=== PATIENT | female | born 1980 | race African-American/Black ===

== ENCOUNTER 2020-05-01 09:42 | Inpatient (IN) | payer SELFPAY ==
[2020-05-01] VITALS (29 sets, daily range): BP systolic 119–203; BP diastolic 63–108
[~2020-05-01] VITALS: Ht 157.5 cm; Wt 80.3 kg
[2020-05-01] MEDS ORDERED: MORPHINE SULFATE INJ 4 MG/ML INJ 1ML IV ONE (09:45)
[2020-05-01] MEDS ORDERED: ASPIRIN 81 MG CHEW TAB PO ONE ×2 (09:45→10:15)
[2020-05-01] MEDS ORDERED: ONDANSETRON HCL INJ 2MG/ML 2ML 2 MG/ML VIAL IV ONE (09:45)
[2020-05-01] MEDS ORDERED: HYDRALAZINE HCL 20 MG/ML VIAL IV ONE (09:45)
--- NOTE | 2020-05-01 09:48 | Emergency Department Note ---
History of Present Illnes History of Present Illness History of Present Illness This is a 39 year old female presents to the ED for dyspnea and CP that started this AM. Patient self-administered nitro with relief from pain . Historian: Patient Arrival Mode: Car Onset (how long ago): hour(s) Location: substernal Radiation: Reports non-radiation Severity: moderate Onset quality: sudden Duration (how long): hour(s) Timing of current episode: constant Progression: worsening Chronicity: new Context: Denies recent illness, Denies recent surgery, Denies recent immobilization, Denies recent travel, Denies trauma/injury, Denies new medications, Denies hx of DVT/PE, Denies non-compliance w/ medications, Denies other Exacerbating factors: other (nitro) Associated symptoms: Reports chest pain, Reports shortness of breath Past Medical/Family History Physician Review I have reviewed the patient's past medical and family history. Any updates have been documented here. Past Medical History Recent Fever: No Clinical Suspicion of Infectio: No New/Unexplained Change in Ment: No Past Medical History: CHF Past Surgical History: None Social History Smoking Cessation: Never Smoker Alcohol Use: None Any Illegal Drug Use: No Review of Systems Review of Systems Constitutional: Reports no symptoms EENTM: Reports no symptoms Cardiovascular: Reports chest pain Respiratory: Reports dyspnea Gastrointestinal: Reports no symptoms Genitourinary: Reports no symptoms Musculoskeletal: Reports no symptoms Integumentary: Reports no symptoms Neurological: Reports no symptoms Psychological: Reports no symptoms Endocrine: Reports no symptoms Hematological/Lymphatic: Reports no symptoms Physical Exam Related Data Allergies: Coded Allergies: No Known Allergies (Unverified , 05/01/20) Vital signs reviewed: Yes Physical Exam CONSTITUTIONAL Constitutional: Present well-developed, Present well-nourished HENT HENT: Present normocephalic, Present atraumatic, Present oropharynx clear/moist, Present nose normal HENT L/R: Present left ext ear normal, Present right ext ear normal EYES Eyes: Reports PERRL, Reports conjunctivae normal NECK Neck: Present ROM normal PULMONARY Pulmonary: Present effort normal, Present breath sounds normal CARDIOVASCULAR Cardiovascular: Present regular rhythm, Present irregular rhythm, Present heart sounds normal, Present capillary refill normal, Present normal rate GASTROINTESTINAL Abdominal: Present soft, Present nontender, Present bowel sounds normal GENITOURINARY Genitourinary: Present exam deferred SKIN Skin: Present warm, Present dry MUSCULOSKELETAL Musculoskeletal: Present ROM normal NEUROLOGICAL Neurological: Present alert, Present oriented x 3, Present no gross motor or sensory deficits PSYCHOLOGICAL Psychological: Present mood/affect normal, Present judgement normal Results Laboratory Lab results reviewed: Yes Laboratory comments Laboratory Tests Test 05/01/20 10:08 White Blood Count 5.66 x10e3/uL (4.8-10.8) Red Blood Count 3.82 x10e6/uL (3.6-5.1) Hemoglobin 8.9 g/dL (12.0-16.0) Hematocrit 29.0 % (34.2-44.1) Mean Corpuscular Volume 75.9 fL (81-99) Mean Corpuscular Hemoglobin 23.3 pg (28-32) Mean Corpuscular Hemoglobin Concent 30.7 g/dL (31-35) Red Cell Distribution Width 19.6 % (11.7-14.4) Platelet Count 404 x10e3/uL (140-360) Neutrophils (%) (Auto) 57.9 % (38.7-80.0) Lymphocytes (%) (Auto) 31.8 % (18.0-39.1) Monocytes (%) (Auto) 6.5 % (4.4-11.3) Eosinophils (%) (Auto) 2.7 % (0.0-6.0) Basophils (%) (Auto) 0.9 % (0.0-1.0) Neutrophils # (Auto) 3.3 (2.1-6.9) Lymphocytes # (Auto) 1.8 (1.0-3.2) Monocytes # (Auto) 0.4 (0.2-0.8) Eosinophils # (Auto) 0.2 (0.0-0.4) Basophils # (Auto) 0.1 (0.0-0.1) Absolute Immature Granulocyte (auto 0.01 x10e3/uL (0-0.1) D-Dimer Quantitative (PE/DVT) 0.88 ug/mLFEU (0.00-0.45) Sodium Level 140 mmol/L (136-145) Potassium Level 3.2 mmol/L (3.5-5.1) Chloride Level 106 mmol/L (98-107) Carbon Dioxide Level 23 mmol/L (22-29) Anion Gap 14.2 mmol/L (8-16) Blood Urea Nitrogen 42 mg/dL (7-26) Creatinine 2.83 mg/dL (0.57-1.11) Estimat Glomerular Filtration Rate 18 ML/MIN (60-) BUN/Creatinine Ratio 15 (6-25) Glucose Level 122 mg/dL (74-118) Calcium Level 8.1 mg/dL (8.4-10.2) Total Bilirubin 0.2 mg/dL (0.2-1.2) Aspartate Amino Transf (AST/SGOT) 14 IU/L (5-34) Alanine Aminotransferase (ALT/SGPT) 15 IU/L (0-55) Alkaline Phosphatase 54 IU/L (40-150) Creatine Kinase 1023 IU/L (29-168) Creatine Kinase MB 4.50 ng/mL (0-5.0) Troponin I 0.010 ng/mL (0-0.300) B-Type Natriuretic Peptide 916.1 pg/mL (0-100) Total Protein 6.7 g/dL (6.5-8.1) Albumin 2.6 g/dL (3.5-5.0) Globulin 4.1 g/dL (2.3-3.5) Albumin/Globulin Ratio 0.6 (0.8-2.0) Imaging Imaging results reviewed: Yes Impressions CXR : interpreted without the benfits of radiology, Cardiomegaly without cephalization of concerning findings for Pulmonary edema Procedures 12 Lead ECG Interpretation ECG Interpretation : ECG: ECG 1 Inspector Elevators: Interpreted by ED physician Date: May 01, 2020 Time: 10:09 Prior ECG tracings: reviewed Rhythm: atrial fibrillation Ectopy: PVC's Rate: normal BPM: 89 QRS axis: normal ST segments normal: Yes T waves normal: Yes Clinical Impression: abnormal ECG Critical Care Time Total Critical Care Time (min): 31 Critcal care necessary due to: cardiac failure Critcal care time spent by me: develop tx plan w patient/surrogate, evaluation patient response to tx, examination of patient, obtaining hx from patient/surrogate, order/perform tx or interventions, order/review laboratory studies, order/review radiographic studies, pulse oximetry, re-evaluation of patient condition Assessment & Plan Medical Decision Making MDM Diff Dx : CHF, ACS, PNA, COVID-19 URI Assessment & Plan Final Impression: (1) Hypertensive CHF (2) Hypokalemia (3) Renal insufficiency (4) Hypertensive emergency Depart Disposition: ADMITTED ARASH PIERRE May 01, 2020 09:47
[2020-05-01] MEDS ORDERED: NITROGLYCERIN/D5W 200 MCG/ML 250 ML IV PRN (10:15)
[2020-05-01] MEDS ORDERED: MORPHINE SULFATE 2 MG/ML SYR 1ML IV PRN (10:15)
[2020-05-01] MEDS ORDERED: SODIUM CHLORIDE FLUSH 10 ML SYR INJ PRN (10:15)
[2020-05-01] MEDS ORDERED: ONDANSETRON HCL INJ 2MG/ML 2ML 2 MG/ML VIAL IV PRN ×2 (10:15→15:30)
[2020-05-01 10:17] LABS: BASOPHILS # (AUTO) 0.1 (0.0-0.1); BASOPHILS % 0.9 % (0.0-1.0); EOSINOPHILS # (AUTO) 0.2 (0.0-0.4); EOSINOPHILS % 2.7 % (0.0-6.0); HEMOGLOBIN 8.9 g/dL (12.0-16.0); LYMPHOCYTES # (AUTO) 1.8 (1.0-3.2); LYMPHOCYTES % 31.8 % (18.0-39.1); MEAN CORPUSCULAR HEMOGLOBIN 23.3 pg (28-32); MEAN CORPUSCULAR HGB CONC 30.7 g/dL (31-35); MEAN CORPUSCULAR VOLUME 75.9 fL (81-99); MONOCYTES # (AUTO) 0.4 (0.2-0.8); MONOCYTES % 6.5 % (4.4-11.3); NEUTROPHILS # (AUTO) 3.3 (2.1-6.9); NEUTROPHILS % 57.9 % (38.7-80.0); PLATELET COUNT 404 x10e3/uL (140-360); RED BLOOD COUNT 3.82 x10e6/uL (3.6-5.1); RED CELL DISTRIBUTION WIDTH 19.6 % (11.7-14.4)
[2020-05-01] MEDS ORDERED: MORPHINE SULFATE INJ 4 MG/ML INJ 1ML IV PRN (10:30)
[2020-05-01 10:38] LABS: ALBUMIN 2.6 g/dL (3.5-5.0); ALBUMIN/GLOBULIN RATIO 0.6 (0.8-2.0); ANION GAP 14.2 mmol/L (8-16); CALCIUM 8.1 mg/dL (8.4-10.2); CREATININE, SERUM 2.83 mg/dL (0.57-1.11); POTASSIUM 3.2 mmol/L (3.5-5.1)
[2020-05-01 10:46] LABS: CREATINE KINASE MB 4.5 ng/mL (0-5.0)
--- OUTSIDE RECORDS SUMMARY | 2020-05-01 11:14 | XMS REPORT | Clinical Summary ---
Author Author [facility] Organization [facility] Address Unknown Phone Unavailable Care Team Providers Care Atomizer Assembler Name Role Phone Cuco Barahona MD PCP Allergies No Known Allergies Medications End Date Status Medication Sig Dispensed Refills Start Date Active EPINEPHrine (EPIPEN) 0.3 Inject 0.3 mL 2 Syringe 1 mg/0.3 mL intramuscular 6 injectionIndications: ly as needed Environmental allergies for Anaphylaxis. Active blood glucose test Check blood 50 Each 3 01/06/2 01 stripsIndications: glucose 2 7 Uncontrolled type 2 times weekly diabetes mellitus without complication, without long-term current use of insulin Active lancets 28 Check blood 100 Each 1 gaugeIndications: glucose 2 7 Uncontrolled type 2 times weekly. diabetes mellitus without complication, without long-term current use of insulin Active pen needle, diabetic 31 Inject under 300 Each 2 0 gauge x 3/16" the skin 4 8 needlesIndications: times daily. Inadequately controlled diabetes mellitus Active triamcinolone (KENALOG) Apply to 80 g 0 0.1 % affected area 9 ointmentIndications: 2 times Pruritic dermatitis daily. Active polyethylene glycol Mix 17 grams 527 g 1 08/05 (GLYCOLAX) 17 gram/dose into 4 to 8 0 oral powderIndications: ounces of Iron deficiency anemia water, juice, due to chronic blood loss soda, tea or coffee and drink as directed, one time a day. Active atorvastatin (LIPITOR) 80 Take 1 tablet 30 tablet 2 mg tabletIndications: by mouth at 0 Essential hypertension bedtime nightly. Active NIFEdipine (PROCARDIA XL) Take 1 tablet 30 tablet 2 90 mg extended release by mouth 0 tabletIndications: daily. Essential hypertension Active aspirin (ASPIRIN) 81 mg Chew and 30 tablet 2 chewable swallow 1 0 tabletIndications: tablet by Essential hypertension mouth daily. Active isosorbide mononitrate Take 1 tablet 30 tablet 2 1 (IMDUR) 30 mg extended by mouth 0 release every tabletIndications: morning. Essential hypertension Active nitroGLYCERIN (NITROSTAT) Dissolve 1 100 tablet 1 0.4 mg sublingual tablet under 0 tabletIndications: Chest the tongue pain in adult every 5 minutes as needed, up to 3 times. If chest pain persists, call 911. Active NIFEdipine (PROCARDIA XL) Take 1 tablet 90 tablet 1 90 mg extended release by mouth 0 tabletIndications: daily. Essential hypertension Active isosorbide mononitrate Take 1 tablet 90 tablet 1 1 (IMDUR) 30 mg extended by mouth 0 release daily. tabletIndications: Essential hypertension Active atorvastatin (LIPITOR) 80 Take 1 tablet 90 tablet 1 mg tabletIndications: by mouth at 0 Essential hypertension bedtime nightly. Active glimepiride (AMARYL) 4 mg Take 1 tablet 90 tablet 1 tabletIndications: by mouth 0 Controlled type 2 daily (with diabetes mellitus with breakfast). stage 4 chronic kidney disease, without long-term current use of insulin Active furosemide (LASIX) 40 mg Take 2 360 tablet 1 1 tabletIndications: tablets by 0 Essential hypertension mouth 2 times daily. Active linaGLIPtin (TRADJENTA) 5 Take 1 tablet 90 tablet 1 mg tabletIndications: by mouth 0 Controlled type 2 daily. diabetes mellitus with stage 4 chronic kidney disease, without long-term current use of insulin Active metoprolol succinate Take 1 tablet 90 tablet 2 (TOPROL XL) 100 mg by mouth 0 extended release every 12 tabletIndications: hours. Essential hypertension, Paroxysmal A-fib Active lancets 28 Use 2 times 200 Each 3 gaugeIndications: daily 0 Controlled type 2 diabetes mellitus with stage 4 chronic kidney disease, without long-term current use of insulin Active blood glucose test Use 2 times 200 Each 6 02 stripsIndications: daily. 0 Controlled type 2 diabetes mellitus with stage 4 chronic kidney disease, without long-term current use of insulin Active blood glucose Use as 1 Kit 0 meterIndications: directed.. 0 Controlled type 2 diabetes mellitus with stage 4 chronic kidney disease, without long-term current use of insulin Active Miscellaneous Medical Blood 1 Each 0 02/28 Supply MiscIndications: pressure 0 Essential hypertension, monitor to Congestive heart failure, check BP. unspecified HF chronicity, unspecified heart failure type Active Miscellaneous Medical Scale to 1 Each 0 02/28 Supply MiscIndications: check weight. 0 Essential hypertension, Congestive heart failure, unspecified HF chronicity, unspecified heart failure type 03/26/2020 Discontinued (Reorder) blood glucose Use as 1 Kit 0 meterIndications: directed.. 9 Uncontrolled type 2 diabetes mellitus without complication, without long-term current use of insulin 03/26/2020 Discontinued (Other) PARoxetine (PAXIL) 20 mg Take 1 tablet 30 tablet 3 tabletIndications: by mouth 9 Anxiety every morning. 05/21/2019 Discontinued (Duplicate Orde r) valsartan (DIOVAN) 80 mg Take 1 tablet 60 tablet 0 tabletIndications: by mouth 2 9 Essential hypertension, times daily Microalbuminuria for 30 days. 03/26/2020 Discontinued (Reorder) lancets 28 Use 2 times 200 Each 3 gaugeIndications: daily 9 Inadequately controlled diabetes mellitus 03/26/2020 Discontinued (Reorder) blood glucose test Use 2 times 200 Each 6 01 stripsIndications: daily. 9 Inadequately controlled diabetes mellitus 08/06/2019 Discontinued (Other) hydrOXYzine (ATARAX) 10 Take 1 tablet 30 tablet 0 mg tabletIndications: by mouth 9 Pruritic dermatitis every 6 hours as needed for Itching May cause DROWSINESS. 05/02/2019 Discontinued (Dose adjustmen t) furosemide (LASIX) 20 mg Take 1 tablet 60 tablet 2 tabletIndications: by mouth 2 9 Essential hypertension times daily. 05/21/2019 Discontinued (Reorder) valsartan (DIOVAN) 80 mg Take 1 tablet 90 tablet 1 tabletIndications: by mouth 2 9 Essential hypertension times daily for 180 days. 08/06/2019 Discontinued (Reorder) metFORMIN (GLUCOPHAGE) Take 1 tablet 180 tablet 1 1 1,000 mg by mouth 2 9 tabletIndications: times daily Inadequately controlled (with meals). diabetes mellitus 08/06/2019 Discontinued (Reorder) linaGLIPtin (TRADJENTA) 5 Take 1 tablet 90 tablet 1 mg tabletIndications: by mouth 9 Inadequately controlled daily. diabetes mellitus 07/01/2019 Discontinued (Reorder) spironolactone Take 1 tablet 30 tablet 1 (ALDACTONE) 25 mg by mouth 9 tabletIndications: daily. Essential hypertension 05/02/2019 Discontinued (Reorder) hydrALAZINE (APRESOLINE) Take 1 tablet 270 tablet 1 25 mg tabletIndications: by mouth 3 9 Essential hypertension times daily. 03/26/2020 Discontinued (Duplicate Orde r) polyethylene glycol Mix 17 grams 527 g 0 04/25 (GLYCOLAX) 17 gram/dose into 4 to 8 9 oral powderIndications: ounces of Constipation, unspecified water, juice, constipation type soda, tea or coffee and drink as directed, one time a day. 05/29/2019 Discontinued dexlansoprazole Take 1 30 capsule 0 (DEXILANT) 60 mg delayed capsule by 9 release mouth daily. capsuleIndications: Abdominal discomfort 05/21/2019 Discontinued (Dose adjustmen t) glimepiride (AMARYL) 2 mg Take 1 tablet 90 tablet 1 tabletIndications: by mouth 9 Inadequately controlled every morning diabetes mellitus (before breakfast). 08/06/2019 Discontinued (Reorder) atorvastatin (LIPITOR) 40 Take 1 tablet 90 tablet 1 mg tabletIndications: by mouth at 9 Inadequately controlled bedtime diabetes mellitus nightly. 08/06/2019 Discontinued (Reorder) furosemide (LASIX) 40 mg Take 2 360 tablet 1 1 tabletIndications: tablets by 9 Essential hypertension mouth 2 times daily. 08/06/2019 Discontinued (Reorder) hydrALAZINE (APRESOLINE) Take 1 tablet 270 tablet 1 25 mg tabletIndications: by mouth 3 9 Essential hypertension times daily. 05/02/2019 Discontinued (Reorder) NIFEdipine (NIFEDIPINE Take 1 tablet 90 tablet 1 1 ER) 60 mg 24 hr extended by mouth 9 release daily. tabletIndications: Essential hypertension 05/29/2019 Discontinued NIFEdipine (NIFEDIPINE Take 1 tablet 90 tablet 1 1 ER) 60 mg 24 hr extended by mouth 9 release daily. tabletIndications: Essential hypertension 05/29/2019 Discontinued valsartan (DIOVAN) 80 mg Take 1 tablet 180 tablet 1 tabletIndications: by mouth 2 9 Essential hypertension times daily for 180 days. 08/06/2019 Discontinued (Reorder) glimepiride (AMARYL) 4 mg Take 1 tablet 90 tablet 1 tabletIndications: by mouth 9 Inadequately controlled daily (with diabetes mellitus breakfast). 08/06/2019 Discontinued (Reorder) NIFEdipine (NIFEDIPINE Take 1 tablet 90 tablet 1 0 ER) 60 mg 24 hr extended by mouth 0 release daily. tabletIndications: Essential hypertension 07/01/2019 Discontinued (Reorder) dexlansoprazole Take 1 30 capsule 0 (DEXILANT) 60 mg delayed capsule by 0 release mouth daily. capsuleIndications: Abdominal discomfort 08/06/2019 Discontinued (Reorder) valsartan (DIOVAN) 80 mg Take 1 tablet 180 tablet 1 tabletIndications: by mouth 2 0 Essential hypertension times daily 08/06/2019 Discontinued (Reorder) dexlansoprazole Take 1 30 capsule 0 (DEXILANT) 60 mg delayed capsule by 0 release mouth daily. capsuleIndications: Abdominal discomfort 08/06/2019 Discontinued (Dose adjustmen t) spironolactone Take 1 tablet 30 tablet 1 (ALDACTONE) 25 mg by mouth 0 tabletIndications: daily. Essential hypertension 08/06/2019 Discontinued (Reorder) spironolactone Take 1 tablet 180 tablet 1 (ALDACTONE) 50 mg by mouth 2 0 tabletIndications: times daily. Essential hypertension 08/06/2019 Discontinued (Reorder) furosemide (LASIX) 40 mg Take 2 360 tablet 1 0 tabletIndications: tablets by 0 Essential hypertension mouth 2 times daily. 08/06/2019 Discontinued (Reorder) hydrALAZINE (APRESOLINE) Take 1 tablet 270 tablet 1 25 mg tabletIndications: by mouth 3 0 Essential hypertension times daily. 08/06/2019 Discontinued (Dose adjustmen t) valsartan (DIOVAN) 80 mg Take 1 tablet 180 tablet 1 tabletIndications: by mouth 2 0 Essential hypertension times daily 08/06/2019 Discontinued (Reorder) NIFEdipine (NIFEDIPINE Take 1 tablet 90 tablet 1 0 ER) 60 mg 24 hr extended by mouth 0 release daily. tabletIndications: Essential hypertension 08/06/2019 Discontinued (Reorder) metFORMIN (GLUCOPHAGE) Take 1 tablet 180 tablet 1 0 1,000 mg by mouth 2 0 tabletIndications: times daily Inadequately controlled (with meals). diabetes mellitus 08/06/2019 Discontinued (Reorder) Valsartan 160 mg Take 1 tablet 90 tablet 1 02 tabletIndications: by mouth 0 Essential hypertension daily. 08/06/2019 Discontinued (Reorder) polyethylene glycol Mix 17 grams 527 g 1 08/05 (GLYCOLAX) 17 gram/dose into 4 to 8 0 oral powderIndications: ounces of Iron deficiency anemia water, juice, due to chronic blood loss soda, tea or coffee and drink as directed, one time a day. 08/06/2019 Discontinued (Reorder) spironolactone Take 1 tablet 180 tablet 1 (ALDACTONE) 50 mg by mouth 2 0 tabletIndications: times daily. Essential hypertension 08/06/2019 Discontinued (Reorder) Valsartan 160 mg Take 1 tablet 90 tablet 1 02 tabletIndications: by mouth 0 Essential hypertension daily. 03/26/2020 Discontinued (Dose adjustmen t) NIFEdipine (NIFEDIPINE Take 1 tablet 90 tablet 1 0 ER) 60 mg 24 hr extended by mouth 0 release daily. tabletIndications: Essential hypertension 03/26/2020 Discontinued (Other) metFORMIN (GLUCOPHAGE) Take 1 tablet 180 tablet 1 0 1,000 mg by mouth 2 0 tabletIndications: times daily Inadequately controlled (with meals). diabetes mellitus 03/26/2020 Discontinued (Alternate ther apy) spironolactone Take 1 tablet 180 tablet 1 (ALDACTONE) 50 mg by mouth 2 0 tabletIndications: times daily. Essential hypertension 03/26/2020 Discontinued (Alternate ther apy) Valsartan 160 mg Take 1 tablet 90 tablet 1 02 tabletIndications: by mouth 0 Essential hypertension daily. 03/04/2020 Discontinued (Reorder) hydrALAZINE (APRESOLINE) Take 1 tablet 270 tablet 1 25 mg tabletIndications: by mouth 3 0 Essential hypertension times daily. 03/26/2020 Discontinued (Reorder) furosemide (LASIX) 40 mg Take 2 360 tablet 1 0 tabletIndications: tablets by 0 Essential hypertension mouth 2 times daily. 11/21/2019 Discontinued dexlansoprazole Take 1 60 capsule 0 (DEXILANT) 60 mg delayed capsule by 0 release capsule mouth daily. 03/26/2020 Discontinued (Reorder) glimepiride (AMARYL) 4 mg Take 1 tablet 90 tablet 1 tabletIndications: by mouth 0 Inadequately controlled daily (with diabetes mellitus breakfast). 03/26/2020 Discontinued (Dose adjustmen t) atorvastatin (LIPITOR) 40 Take 1 tablet 90 tablet 1 mg tabletIndications: by mouth at 0 Inadequately controlled bedtime diabetes mellitus nightly. 03/04/2020 Discontinued (Reorder) linaGLIPtin (TRADJENTA) 5 Take 1 tablet 90 tablet 1 mg tabletIndications: by mouth 0 Inadequately controlled daily. diabetes mellitus 10/26/2019 Discontinued (Therapy comple alecia) fluconazole (DIFLUCAN) Take 1 tablet 3 tablet 0 0 150 mg tabletIndications: by mouth 0 Vaginal discharge weekly. 11/05/2019 hydrOXYzine (ATARAX) 25 Take 1 tablet 30 tablet 1 mg tabletIndications: by mouth 3 0 Itching times daily as needed for up to 10 days for Itching. 03/04/2020 Discontinued (Reorder) dexlansoprazole Take 1 60 capsule 0 (DEXILANT) 60 mg delayed capsule by 0 release mouth daily. capsuleIndications: Medication refill 03/26/2020 Discontinued (Reorder) linaGLIPtin (TRADJENTA) 5 Take 1 tablet 90 tablet 1 mg tabletIndications: by mouth 0 Inadequately controlled daily. diabetes mellitus 03/26/2020 Discontinued (Therapy comple alecia) dexlansoprazole Take 1 60 capsule 0 (DEXILANT) 60 mg delayed capsule by 0 release mouth daily. capsuleIndications: Medication refill 03/26/2020 Discontinued (Therapy comple alecia) hydrALAZINE (APRESOLINE) Take 1 tablet 270 tablet 1 25 mg tabletIndications: by mouth 3 0 Essential hypertension times daily. 03/19/2020 Discontinued (Duplicate Orde r) omeprazole (PRILOSEC) 20 Take 2 30 capsule 2 1 mg delayed release capsules by 0 capsuleIndications: Other mouth every chest pain morning (before breakfast). 03/22/2020 polyethylene glycol 3350 Mix 17 grams 14 Each 0 (GLYCOLAX) 17 gram oral into 4 to 8 0 powder packetIndications: ounces of Fibroids water, juice, soda, tea or coffee and drink as directed. 03/26/2020 Discontinued (Reorder) metoprolol succinate Take 1 tablet 30 tablet 2 (TOPROL XL) 100 mg by mouth 0 extended release every 12 tabletIndications: hours. Paroxysmal atrial fibrillation, Essential hypertension 03/21/2020 tropicamide (MYDRIACYL) Instill 1 15 mL 0 0.5 % ophthalmic Drop in each 0 solutionIndications: eye once as Preventative health care needed for up to 1 dose (for poor retina scan image). Status Hospital, Clinic, or Ordered Dose Route Frequency Start End Date Other Facility Date Administered Medication Ended cloNIDine HCl (CATAPRES) 0.1 mg OR ONCE 05/02/20 tablet 0.1 mgIndications: 19 9 Essential hypertension Active Problems Problem Noted Date Congestive heart failure 03/21/2020 CKD (chronic kidney disease) stage 4, GFR 15-29 ml/mi n 03/21/2020 Acute exacerbation of CHF (congestive heart failure) 03/17/2020 Acute on chronic diastolic heart failure 03/14/2020 Proteinuria 08/06/2019 Premenopausal menorrhagia 08/06/2019 Cyclic perimenstrual edema 05/21/2019 Abnormal urine- protein /RBCs -needs urine culture 1 07/02/2018 Uncontrolled hypertension-per renal doppler -no renal art stenosis ; 04/27/2019 aldosterone /renin/ urine metanephrine neg ; tte- diastolic dysfunction ;proteinuria + urine electrophoresis pe nding Renal calculus 04/27/2019 Premenstrual symptom- edema , depresssed mood 2018 Headache 02/03/2017 Nonintractable headache 02/03/2017 Chest pain 02/02/2017 Medication refill-genital herpes - 3 times last yr 0 01/04/2017 Anemia, unspecified 03/18/2016 Influenza vaccination declined 03/18/2016 Non compliance with medical treatment- I have 3 kids 6th grade ; working , 03/01/2016 school ; single parent Microalbuminuria 09/26/2015 Stress- working 5 days a wk ; school 4 days a wk; sin gle mother - 3 kids-11 09/10/2015 yrs ( twins and one son) ; moth er helps Genital herpes simplex- 7 times 2014 ; to start suppr esive therapy 08/07/2015 Leg pain 03/15/2015 Myopia with astigmatism 10/18/2014 Irregular periods/menstrual cycles 10/24/2013 Fibroids 10/24/2013 PCOS (polycystic ovarian syndrome) 01/26/2012 Tinea pedis 08/02/2009 Callus 08/02/2009 Diabetes mellitus type 2, uncontrolled 06/19/2009 HTN (hypertension) 03/11/2007 Resolved Problems Problem Noted Date Resolved Date Bloating symptom 08/06/2019 03/26/2020 Encounters Care Team Description Date Type Specialty Cuco Barahona MD Rahman, Huma, MD Chest pain, unspecified type (Primary Dx ); Uncontrolled hypertension; CKD (chronic kidney disease) stage 4, GFR 15-29 ml/min; Psychosocial distress 05/01/2020 Office Visit Family Practice Cuco Barahona MD Anemia, unspecified type; Menorrhagia with regular cycle; Uterine leiomyoma, unspecified location 04/28/2020 Lab Appointment Lab Cuco Barahona MD Controlled type 2 diabetes mellitus with stage 4 chronic kidney disease, without long-term current use of insulin (Primary Dx); CKD (chronic kidney disease) stage 4, GFR 15-29 ml/min; Essential hypertension; Congestive heart failure, unspecified HF chronicity, unspecified heart failure type; Need for influenza vaccination; Paroxysmal A-fib; Anemia, unspecified type; Menorrhagia with regular cycle; Uterine leiomyoma, unspecified location 03/26/2020 Office Visit Family Practice Cuco Barahona MD Congestive heart failure, unspecified HF chronicity, unspecified heart failure type (Primary Dx); CKD (chronic kidney disease) stage 4, GFR 15-29 ml/min; Preventative health care 03/21/2020 Telephonic Family Practice Encounter Yessica Fuentes 03/21/2020 Clinical Case Social Work Mgt 03/18/2020 Intake Cuco Barahona MD NO SHOW ENCOUNTER (Primary Dx) 03/17/2020 Telemedicine Family Practice Nithin Rangel MD Sharma, Kunal M, MD Miller, Sara K, MD Baker, James R, MD Sanchez, Ashley N, ResidentMD Essential hypertension (Primary Dx); Chest pain, unspecified type; Pre-syncope; Paroxysmal atrial fibrillation; New onset of congestive heart failure; Anemia, unspecified type; Chest pain in adult; Other chest pain; Fibroids 03/14/2020 Hospital - Encounter 03/19/2020 03/14/2020 Intake Emergency Medicine Erin Han RN 03/14/2020 Nurse Triage Cuco Barahona MD Medications 03/04/2020 Refill [facility] Xiao Blanchard MD Essential hypertension; Uncontrolled type 2 diabetes mellitus with hypoglycemia without coma; Microalbuminuria; Microcytic anemia 11/26/2019 Hospital Lab Encounter Cuco Barahona MD Medications 11/21/2019 Refill Family Practice Valerie Iglesias PA Itching (Primary Dx) 10/26/2019 Office Visit [facility] Cuco Barahona MD Inadequately controlled diabetes mellitu s (Primary Dx); Essential hypertension; Proteinuria, unspecified type; CKD (chronic kidney disease) stage 3, GFR 30-59 ml/min; Dietary counseling for Above / Below Normal BMI; Exercise counseling for Above Normal BMI Only!; Vaginal discharge; Premenopausal menorrhagia; Iron deficiency anemia due to chronic blood loss; Bloating symptom 08/06/2019 Office Visit Family Cuco Rodriguez MD Medications 08/06/2019 Refill Family Practice Cuco Barahona MD Medications 07/01/2019 Refill Family Practice Cuco Barahona MD Medications 05/29/2019 Refill Family Practice Cuco Barahona MD Inadequately controlled diabetes mellitu s (Primary Dx); Essential hypertension; Proteinuria, unspecified type; Cyclic perimenstrual edema; Anemia, unspecified type; Elevated platelet count; Urinary frequency 05/21/2019 Office Visit Family Practice Cuco Barahona MD Essential hypertension (Primary Dx); Chest pain, unspecified type 05/02/2019 Office Visit Family Practice Cuco Barahona MD Martinez, Marvin, LVN Chest pain, unspecified type (Primary Dx ); Essential hypertension 05/02/2019 Nurse Only Cuco Barahona MD Essential hypertension; Renal insufficiency; Hematuria, unspecified type; Abnormal urine 05/02/2019 Lab Appointment Lab after 05/01/2019 Immunizations Name Administration Dates Next Due Influenza Vaccine 03/18/2016, 05/22/2014 (Def erred: Patient Refused) Influenza, Injectable, 04/25/2019 (Deferred: Patie nt Refused), 04/17/2019 Quadrivalent (Deferred: Patient Refused) Influenza, 03/26/2020 (Deferred: Patie nt Refused) Vaccine<FLUCELVAX>(Multi- Dose) PNEUMOCOCCAL 23-VALPS 07/01/2016 (Deferred: Patie nt Refused) VACCINE 25 MCG/0.5 ML INJECTION PPD 06/21/2007 Pneumococcal 13-valent 10/03/2015 (Deferred: Patie nt Refused) conj 0.5 mL injection Tdap (Tetanus Toxoid, 04/17/2019 (Deferred: Patie nt Refused) Reduced Diphtheria Toxoid And Acellular Pertussis, Absorbed) Tdap Tetanus, diphtheria, 04/17/2019 (Deferred: Jayde ent already had this acellular pertussis immunization) Vaccine Family History Medical History Relation Name Comments Hypertension Brother Cancer Maternal ? throat CA Grandfather Diabetes Mother Hypertension Mother Relation Name Status Comments Brother Alive Maternal Grandfather Mother Alive Mother Alive Social History Date Tobacco Use Types Packs/Day Years Used Never Smoker Smokeless Tobacco: Never Used Tobacco Cessation: Counseling Given: No Comments: Non tobacco user Drinks/Week oz/Week Comments Alcohol Use No Food Insecurity Answer Date Recorded Within the past 12 months, you worried that your Sometimes true 08/06/2019 food would run out before you got money to buy more. Within the past 12 months, the food you bought Sometimes t rue 08/06/2019 just didn't last and you didn't have mo polina to get more. Sex Assigned at Date Recorded Not on file Industry Job Start Date Occupation Not on file Not on file Not on file Travel End Travel History Travel Start No recent travel history available. Date Recorded COVID-19 Exposure Response 05/01/2020 7:31 AM INSTRUCTIONAL ASSISTANT In the last month, have you been in contact with No / Unsure someone who was confirmed or suspected to have Coronavirus / COVID-19? Last Filed Vital Signs Reading Time Taken Comments Vital Sign 148/97 05/01/2020 8:49 AM INSTRUCTIONAL ASSISTANT present Blood Pressure 76 05/01/2020 8:49 AM INSTRUCTIONAL ASSISTANT Pulse 36.9 C (98.5 F) 05/01/2020 7:58 AM INSTRUCTIONAL ASSISTANT Temperature 24 05/01/2020 7:58 AM INSTRUCTIONAL ASSISTANT Respiratory Rate 100% 05/01/2020 7:58 AM INSTRUCTIONAL ASSISTANT Oxygen Saturation - - Inhaled Oxygen Concentration 81.1 kg (178 lb 12.8 oz) 05/01/2020 7:58 AM INSTRUCTIONAL ASSISTANT Weight 154.9 cm (5' 1") 05/01/2020 7:58 AM INSTRUCTIONAL ASSISTANT Height 33.78 05/01/2020 7:58 AM INSTRUCTIONAL ASSISTANT Body Mass Index Plan of Treatment Care Team Description Date Type Specialty Cuco Barahona MD [address] [place] [address] [phone] Waitlist patient Please schedule appoint ment in 1 week- clinic visit 05/07/2020 Telephonic Family Practice Encounter covid: negative 03/14/2020 05/16/2020 Office Visit Nephrology Health Maintenance Due Date Last Done Comments Breast Cancer Scrn 2019 (Yearly) DM Foot Exam (Yearly) 02/18/2020 02/17/2019, 02/09/2018, 01/04/2017, Additional history exists DM Retinal Exam (Yearly) 04/23/2020 04/23/2019, 10/18/2014, 06/22/2014, Additional history exists DM HGBA1C (Yearly) 03/15/2021 03/15/2020, 11/26/2019, 04/23/2019, Additional history exists DM Microalbumin Urine 03/26/2021 03/26/2020, Scrn (Yearly) 03/26/2020, 03/21/2020, Additional history exists HPV Cervical Cancer Scrn 02/15/2022 02/15/2017 Pap Cervical Cancer Scrn 02/15/2022 02/15/2017, 12/17/2013, 08/12/2011 Goals Goal Patient Associated Recent Progress Patient-Stat Aut hor Goal Type Problems ed? Eat Healthy Lifestyle Not on track No Ashanti Renteria (04/25/2019 10:55 AM L INSTRUCTIONAL ASSISTANT) Exercise Regularly Self Not on track No Ashanti Renteria management (04/25/2019 10:55 AM L INSTRUCTIONAL ASSISTANT) Home Glucose Monitoring Self No Arabella hernández, management MD Cuco Procedures Comments Procedure Name Priority Date/Time Associated Diag nosis [facility] EKG PROC 12 LEAD Routine 05/01/2020 Chest pa in, unspecified EKG; TRACING ONLY 8:37 AM INSTRUCTIONAL ASSISTANT type CBC Routine 04/28/2020 Anemia, unspeci fied type 3:07 PM INSTRUCTIONAL ASSISTANT Menorrhagia with regular cycle Uterine leiomyoma, unspecified location CBC/DIFF Routine 04/28/2020 Anemia, unspeci fied type 3:07 PM INSTRUCTIONAL ASSISTANT Menorrhagia with regular cycle Uterine leiomyoma, unspecified location COMPREHENSIVE METABOLIC Routine 04/28/2020 Anemia , unspecified type PANEL 3:07 PM INSTRUCTIONAL ASSISTANT Menorrhagia with re gular cycle Uterine leiomyoma, unspecified location GLUCOSE POC Routine 03/18/2020 3:39 PM CDT GLUCOSE POC Routine 03/18/2020 11:51 AM CDT GLUCOSE POC Routine 03/18/2020 7:28 AM CDT CBC Routine 03/18/2020 5:46 AM CDT BASIC METABOLIC PANEL Routine 03/18/2020 5:46 AM CDT CBC/DIFF Routine 03/18/2020 5:46 AM CDT GLUCOSE POC Routine 03/17/2020 8:26 PM CDT MYOCARDIAL PERFUSION Routine 03/17/2020 SPECT REST/STRES MULTIPLE 1:21 PM CDT ECHG STRESS TREADMILL - 03/17/2020 TRACING ONLY (PROSOLVE) 11:46 AM CDT CBC Routine 03/17/2020 5:04 AM CDT BASIC METABOLIC PANEL Routine 03/17/2020 5:04 AM CDT CBC/DIFF Routine 03/17/2020 5:04 AM CDT ECHG EKG PROC 12 LEAD Routine 03/16/2020 [facility] hypertension EKG; TRACING ONLY 10:22 PM CDT Chest pain in adult GLUCOSE POC Routine 03/16/2020 4:55 PM CDT GLUCOSE POC Routine 03/16/2020 11:23 AM CDT GLUCOSE POC Routine 03/16/2020 7:47 AM CDT CBC Routine 03/16/2020 6:31 AM CDT BASIC METABOLIC PANEL Routine 03/16/2020 6:31 AM CDT PHOSPHORUS Routine 03/16/2020 6:31 AM CDT MAGNESIUM Routine 03/16/2020 6:31 AM CDT CBC/DIFF Routine 03/16/2020 6:31 AM CDT GLUCOSE POC Routine 03/15/2020 3:36 PM CDT ECHG EKG PROC 12 LEAD Routine 03/15/2020 EKG; TRACING ONLY 2:19 PM CDT GLUCOSE POC Routine 03/15/2020 11:15 AM CDT IRON PROFILE Routine 03/15/2020 10:07 AM CDT RBC UNITS Timed 03/15/2020 10:05 AM CDT FERRITIN Routine 03/15/2020 10:05 AM CDT T&S - COLLECTION Routine 03/15/2020 10:05 AM CDT TYPE AND SCREEN Routine 03/15/2020 10:05 AM CDT TROPONIN I Timed 03/15/2020 10:05 AM CDT ECHG EKG PROC 12 LEAD Routine 03/15/2020 EKG; TRACING ONLY 9:46 AM CDT GLUCOSE POC Routine 03/15/2020 7:43 AM CDT ECHG NON-INVASIVE PROC STAT 03/15/2020 ECHOCARDIOGRAM 2-D W/O 6:58 AM CDT CONTRAST (PROSOLVE) INFUSION PUMP Routine 03/15/2020 5:59 AM CDT HEMOGLOBIN A1C Add-on 03/15/2020 5:06 AM CDT TROPONIN I Add-on 03/15/2020 5:06 AM CDT CBC Routine 03/15/2020 5:06 AM CDT CALCIUM, IONIZED Routine 03/15/2020 5:06 AM CDT MAGNESIUM Routine 03/15/2020 5:06 AM CDT CBC/DIFF Routine 03/15/2020 5:06 AM CDT PHOSPHORUS Routine 03/15/2020 5:06 AM CDT BASIC METABOLIC PANEL Routine 03/15/2020 5:06 AM CDT CONSULT CLINICAL CASE Routine 03/15/2020 MANAGEMENT (RN/SW) 12:37 AM CDT GLUCOSE POC Routine 03/15/2020 12:04 AM CDT URINE DRUG SCREEN Routine 03/14/2020 10:13 PM CDT TOTAL PROTEIN/CREATININE Add-on 03/14/2020 RATIO, URINE 10:13 PM CDT LIPID PROFILE Add-on 03/14/2020 9:22 PM CDT TROPONIN I Routine 03/14/2020 9:22 PM CDT THYROID STIMULATING Routine 03/14/2020 HORMONE (TSH) 9:22 PM CDT IP CONSULT TO PHYSICAL Routine 03/14/2020 THERAPY 8:11 PM CDT CORONAVIRUS, COVID-19, STAT 03/14/2020 ANJALI 6:10 PM CDT ECHG EKG PROC 12 LEAD Routine 03/14/2020 EKG; TRACING ONLY 5:49 PM CDT ECHG EKG PROC 12 LEAD Routine 03/14/2020 EKG; TRACING ONLY 5:49 PM CDT FREE T4 Add-on 03/14/2020 5:32 PM CDT THYROID STIMULATING Add-on 03/14/2020 HORMONE (TSH) 5:32 PM CDT TROPONIN I STAT 03/14/2020 5:[address] CHEST PE PROTOCOL STAT 03/14/2020 Chest otto n, unspecified 3:23 PM CDT type XRAY CHEST 1 VIEW STAT 03/14/2020 Chest pain, unspecified 1:55 PM CDT type POCT URINE DIPSTICK - STAT 03/14/2020 1:16 PM CDT URINALYSIS STAT 03/14/2020 1:16 PM CDT CBC Routine 03/14/2020 1:16 PM CDT B-TYPE NATRIURETIC STAT 03/14/2020 PEPTIDE (BNP) 1:16 PM CDT D-DIMER STAT 03/14/2020 1:16 PM CDT URINALYSIS STAT 03/14/2020 1:16 PM CDT TROPONIN I STAT 03/14/2020 1:16 PM CDT CBC/DIFF Routine 03/14/2020 1:16 PM CDT BASIC METABOLIC PANEL STAT 03/14/2020 1:16 PM CDT ECHG EKG PROC 12 LEAD Routine 03/14/2020 EKG; TRACING ONLY 11:54 AM CDT GLUCOSE POC Routine 03/14/2020 11:46 AM CDT URINALYSIS Routine 11/26/2019 [facility] hyper tension 7:51 AM CDT Uncontrolled type 2 diabetes mellitus with hypoglycemia without coma Microalbuminuria HEMOGLOBIN A1C Routine 11/26/2019 Uncontrolled ty pe 2 7:51 AM CDT diabetes mellitus with hypoglycemia without coma FERRITIN Routine 11/26/2019 Microcytic anem ia 7:51 AM CDT IRON PROFILE Routine 11/26/2019 Microcytic anem ia 7:51 AM CDT TOTAL PROTEIN/CREATININE Routine 11/26/2019 [facility] hypertension RATIO, URINE 7:51 AM CDT Uncontrolled type 2 diabetes mellitus with hypoglycemia without coma Microalbuminuria URINALYSIS Routine 11/26/2019 [facility] hyper tension 7:51 AM CDT Uncontrolled type 2 diabetes mellitus with hypoglycemia without coma Microalbuminuria BASIC METABOLIC PANEL Routine 11/26/2019 [facility] hypertension 7:51 AM CDT Uncontrolled type 2 diabetes mellitus with hypoglycemia without coma Microalbuminuria GENITAL WET MOUNT WITH STAT 08/06/2019 Vaginal discharge HARESH 4:13 PM CDT CHLAM/GC DNA AMPLI Routine 08/06/2019 Vaginal dis charge 4:12 PM CDT ECHG EKG PROC 12 LEAD Routine 05/02/2019 Chest pa in, unspecified EKG; TRACING ONLY 4:09 PM INSTRUCTIONAL ASSISTANT type PROTEIN ELECTROPHORESIS, Routine 05/02/2019 Renal insufficiency 24-HOUR URINE 3:25 PM INSTRUCTIONAL ASSISTANT BASIC METABOLIC PANEL Routine 05/02/2019 [facility] hypertension 3:15 PM INSTRUCTIONAL ASSISTANT Renal insufficiency H. PYLORI STOOL AG Routine 05/02/2019 Abdominal d iscomfort 3:10 PM INSTRUCTIONAL ASSISTANT after 05/01/2019 Results * CBC/Diff (04/28/2020 3:07 PM INSTRUCTIONAL ASSISTANT) Only the most recent of 6 results within the time period is included. WBC 7.0 4.5 - 11.0 K/uL [facility] RBC 3.70 (L) 4.20 - 5.40 M/uL [facility] Hemoglobin 8.6 (L) 12.0 - 16.0 g/dL [facility] Hematocrit 28.4 (L) 37.0 - 47.0 % [facility] MCV 76.8 (L) 82.0 - 92.0 fL [facility] MCH 23.2 (L) 27.0 - 32.0 pg [facility] MCHC 30.3 (L) 32.0 - 36.0 g/dL [facility] RDW 55.5 (H) 36.4 - 46.3 fL [facility] Platelet 401 (H) 150 - 400 K/uL [facility] Mean Platelet 9.8 9.4 - 12.4 fL [facility] Volume [facility] Percent NRBC 0.0 % [facility] Neutrophil 61.4 34.0 - 70.0 % [facility] Lymphs 29.9 20.0 - 50.0 % [facility] Monocytes 6.0 5.0 - 12.0 % [facility] Eos 2.0 0.7 - 5.0 % [facility] Basos 0.6 0.1 - 1.2 % [facility] Immature 0.1 0.0 - 0.5 % [facility] Granulocytes [facility] Neutrophils 4.28 1.56 - 6.13 K/uL [facility] (Absolute) [facility] Lymphs 2.09 1.18 - 3.74 K/uL [facility] (Absolute) [facility] Monocytes(Absol 0.42 (H) 0.24 - 0.36 K/uL [facility]a dee-ni') [facility] Eos (Absolute) 0.14 0.04 - 0.36 K/uL [facility] Baso (Absolute) 0.04 0.01 - 0.08 K/uL [facility] Immature Grans 0.01 0.00 - 0.03 K/uL [facility] (Abs) [facility] Absolute NRBC 0.00 K/uL [facility] Specimen Blood Performing Organization Address [facility] one Number [facility] [address] [place], [place] [phone] * Comprehensive Metabolic Panel (04/28/2020 3:07 PM INSTRUCTIONAL ASSISTANT) Sodium 140 136 - 145 mmol/L [facility] Potassium 3.8 3.5 - 5.1 mmol/L [facility] Chloride 106 98 - 107 mmol/L [facility] CO2 25 21 - 31 mmol/L [facility] Glucose 69 (L) 70 - 110 mg/dL [facility] Calcium 8.1 (L) 8.6 - 10.3 mg/dL [facility] Urea Nitrogen 42.0 (H) 7.0 - 25.0 mg/dL [facility] Creatinine 2.7 (H) 0.6 - 1.2 mg/dL [facility] Alkaline 51 34 - 104 U/L [facility] Phosphatase [facility] ALT 15 7 - 52 U/L [facility] AST 12 (L) 13 - 39 U/L [facility] Bilirubin, 0.2 0.2 - 1.2 mg/dL [facility] Total [facility] Total Protein 5.7 (L) 6.0 - 8.3 g/dL [facility] eGFR If Africn 24 (L) >=90 mL/min/1.73 m2 [facility] Am [facility] Albumin 2.8 (L) 3.7 - 5.3 g/dL [facility] Anion Gap 9 5 - 16 mmol/L [facility] Specimen Blood Performing Organization Address [facility] [address]/[facility] one Number [facility] [address] [place] [address] * POCT GLUCOSE POC docked device (03/18/2020 3:39 PM CDT) Only the most recent of 12 results within the time period is included. Glucose POC 140 (H) 74 - 106 mg/dL [facility] Specimen Blood Performing Organization Address [facility] [address]/Zipcode Ph one Number [facility] [address] [place] [address] * Basic Metabolic Panel (03/18/2020 5:46 AM CDT) Only the most recent of 7 results within the time period is included. Pathologist [facility] Sodium 137 136 - 145 mmol/L [facility] Potassium 3.9 3.5 - 5.1 mmol/L [facility] Chloride 106 98 - 107 mmol/L [facility] CO2 22 21 - 31 mmol/L [facility] Urea Nitrogen 31.0 (H) 7.0 - 25.0 mg/dL [facility] Creatinine 3.0 (H) 0.6 - 1.2 mg/dL [facility] Glucose 96 70 - 110 mg/dL [facility] Calcium 8.0 (L) 8.6 - 10.3 mg/dL [facility] eGFR If Africn 21 (L) >=90 mL/min/1.73 m2 [facility] Am Anion Gap 9 5 - 16 mmol/L [facility] Specimen Blood Performing Organization Address [facility] [address]/[facility] Ph one Number [facility] [address] [place] [address] * MYOCARDIAL PERFUSION SPECT REST/STRES MULTIPLE (03/17/2020 1:21 PM CDT) [facility] MYOCARDIAL Myocardial Perfusion SMS PERFUSION SPECT Report REST/STRES EMILY THOMAS Age: 39 Gender: F : 1980 Exam Date: 03/17/2020 09:34 Exam Location: [facility] Nuc Ordering Phys: OMAR LANCE Referring Phys: Reading Phys: Clif Barrett MD Fellow Phys: Fellow Phys: Resident: Technologist: Saturnino Fuentes Reason For Exam: Indications: Chest pain, unspecified ICD-9 Codes: R07.9 Exam Type: MYOCARDIAL PERFUSION SPECT REST/STRES MULTIPLE Procedure CPT: 11266 Additional CPT: BP: / HR: Risk Factors: Previous Cardiac Procedures: Cardiac History: Pertinent Meds: Meds past 24 hrs: Pretest Chest Pain: CARDIOLOGY STRESS TEST Pharmacologi Cardiology exercise stress test results pending under separate report. Please look in [facility] under the Procedures Tab in Chart Review. IMAGE PROTOCOL Rst/Str 1 Day Radiopharmaceutical Dose (mCi) Duration (min) Img Date Img Time Rest: Tc-99m 10 REST DATE Tetrofosmin Stress: Tc-99m 30 STRESS DATE Tetrofosmin Administration Site: Right antecubital fossa SPECT RESULTS Technical Quality: Adequate Raw Data Analysis: Stress Perfusion Rest Perfusion Summed Stress Score:10 Summed Rest Score: 0 Summed Difference Score: 10 0 - Normal 2 - Abnormal Uptake 4 - Absent 1 - Mildly Reduced Uptake 3 - Severely Reduced Tracer Uptake X - Not Interpretable RV: Moderate area of anterior wall ischemia with SSS of 4. Large area of lateral wall ischemia with SSS of 6. No evidenced of fixed defect. FUNCTION (calculated via Gated SPECT) Resting LV EF: % EDV: 107 ml (70-100 ml) Post Stress LV EF: 46 % TID: 1.07 ESV: ml (30-50 ml) Technical Quality: LV Size & Function: Reduced left ventricular ejection fraction of 46%. Dilated left ventricle. LV Regional Function: Mild global hypkinesia. Other Findings: Variable Not Implemented IMPRESSIONS Moderate area of anterior wall mild ischemia with SSS of 4 in possible LAD territory. Large area of lateral wall mild to moderate ischemia with SSS of 6 in possible LCx territory. No evidence of infarct. The total SSS is 10. The TID is 1.07. Reduced left ventricular ejection fraction of 46%. [place] Control: Do not remove! 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 A maximum heart rate of 126 was obtained at 04:10 with a maximum systolic blood pressure of 160/91 at 08:10 and a maximum diastolic blood pressure of 156/92 obtained at 07:10. The resting ECG demonstrated a possible prior ASMI. The resting ECG demonstrated non-specific ST-T abnormalities. The stress ECG did not change diagnostically from the pre-test study. Motion artifact obscures several of the ECG tracings. Rare VPBs are noted during the study. CONCLUSION: Abnormal resting ECG. Negative electrocardiographic Lexiscan test by strict ST segment criteria. Nuclear scan results pending under separate report per radiology department. Correlation with those images is advised. Electronically Signed On 03-17-2020 14:21:02 CDT by Freeman BERMEO Specimen Performing Organization Address [facility] one Number SMS * 12 LEAD EKG (03/16/2020 10:22 PM CDT) 12 LEAD EKG FOR SMS P [facility] Test Date: 2020-03-16 Pat Name: EMILY THOMAS Department: N3CI Room: [facility] Gender: Fruit Harvest Worker: Brooklynn : 1980 Requested By: OMAR Olivares Order Number: [id number] Reading MD: Freeman BERMEO Measurements Intervals [place] Rate: 92 P: 93 CA: 160 QRS: 28 QRSD: 76 T: 141 QT: 309 QTc: 267 Interpretive Statements SINUS RHYTHM Non-specific ST-T changes Baseline artifact may adversely affect interpretation - please repeat ECG Abnormal ECG Electronically Signed On 03-17-2020 10:48:57 CDT by Freeman BERMEO Specimen Performing Organization Address [facility] one Number SMS * Phosphorus (03/16/2020 6:31 AM CDT) Only the most recent of 2 results within the time period is included. Phosphorus 4.6 2.5 - 5.0 mg/dL [facility] Specimen Blood Performing Organization Address [facility] one Number [facility] [address], [place] [phone] * Magnesium (03/16/2020 6:31 AM CDT) Only the most recent of 2 results within the time period is included. Magnesium 1.9 1.9 - 2.7 mg/dL [facility] Specimen Blood Performing Organization Address [facility] one Number [facility] [address], [place] [phone] * Transfuse (Red Cell units - nursing) (03/15/2020 4:58 PM CDT) * 12 LEAD EKG (03/15/2020 2:19 PM CDT) 12 LEAD EKG FOR SMS CHP [facility]on Br[facility] Test Date: 2020-03-15 Pat Name: EMILY THOMAS Department: [facility] Room: [facility] 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: : 1980 Requested By: OMAR Olivares Order Number: [id number] Reading MD: Freeman BERMEO Measurements Intervals [place] Rate: 113 P: 36 CA: 124 QRS: 45 QRSD: 88 T: 24 QT: 308 QTc: 423 Interpretive Statements SINUS TACHYCARDIA ABNORMAL RHYTHM ECG Electronically Signed On 03-15-2020 17:25:07 CDT by Freeman BERMEO Specimen Performing Organization Address [facility] [address]/[facility] one Number SMS * Iron Profile (03/15/2020 10:07 AM CDT) Only the most recent of 2 results within the time period is included. TIBC 274 250 - 450 ug/dL [facility] UIBC 247 131 - 425 ug/dL [facility] Iron 27 27 - 159 ug/dL [facility] % Iron Sat 10 (<) 15 - 55 % [facility] Specimen Blood Narrative Performed At Performed at: [address] [place] [address] [facility] [address] [place], [place] [id number] Deputy Commissioner: Jose Daniel Lizarraga MD, Phone: [phone] Performing Organization Address [facility] [address]/[facility] one Number [facility] [address] [place] [address] * T&S Collection (03/15/2020 10:05 AM CDT) Specimen 03/18/2020 23:59 [facility] Expiration ABO/RH O POS [facility] Antibody Screen NEG [facility] Specimen Blood Performing Organization Address [facility] one Number [facility] [address] [place] [address] * 1 Units (03/15/2020 10:05 AM CDT) RBC UNITS compatible [facility] Unit ABO Type O [facility] Unit Rh Type POS [facility] Product Code [id number] [facility] Unit Number [id number] [facility] Unit Status transfused [facility] ISBT Product [id number] [facility] Code Blood Type 5100 [facility] Blood [id number] [facility] Expiration Date Specimen Blood Performing Organization Address [facility] one Number [facility] [address] [place] [phone] * Ferritin (03/15/2020 10:05 AM CDT) Only the most recent of 2 results within the time period is included. Ferritin <10.0 (L) 11.0 - 306.8 ng/mL [facility] Specimen Blood Performing Organization Address [facility] one Number [facility] [address] [place] [phone] * Troponin I (03/15/2020 10:05 AM CDT) Only the most recent of 5 results within the time period is included. Troponin I 0.06 (H) <0.04 ng/mL [facility] Specimen Blood Performing Organization Address [facility] one Number [facility] [address] [place] [phone] * 12 LEAD EKG (03/15/2020 9:46 AM CDT) 12 LEAD EKG FOR [facility] Test Date: 2020-03-15 Pat Name: EMILY THOMAS Department: 6520 Room: 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: Kimberly napoles : 1980 Requested By: OMAR Olivares Order Number: [id number] Reading MD: Freeman BERMEO Measurements Intervals [place] Rate: 92 P: 46 CA: 163 QRS: 41 QRSD: 80 T: 188 QT: 383 QTc: 475 Interpretive Statements SINUS RHYTHM Borderline prolonged QTc MODERATE T-WAVE ABNORMALITY, CONSIDER ISCHEMIA Abnormal ECG Electronically Signed On 03-17-2020 15:19:27 CDT by Freeman BERMEO Specimen Performing Organization Address [facility] one Number SMS * TRANSTHORACIC ECHO (TTE) (03/15/2020 6:58 AM CDT) [facility] TRANSTHORACIC Transthoracic SMS ECHO (TTE) Echo Report EMILY THOMAS Age: 39 Gender: F : 1980 Exam Date: 03/15/2020 06:58 Exam Location: [facility] Echo Ordering Phys: OMAR LANCE Referring Phys: [id number], NATALIO Reading Phys: Jazz Bey Fellow Phys: Fellow Phys: Risk Management Manager: Lidia Zamudio Reason For Exam: Indications: chest pain, heart failure ICD-9 Codes: Exam Type: TRANSTHORACIC ECHO (TTE) Procedure CPT: 02030 Addtional CPT: Ht (in): 62 BSA: 1.91 HR: 78 Rhythm: Sinus rhythm Wt (lb): 177 BP: 146 / 78 Technical Quality: Adequate History: MEASUREMENTS Normal ranges based on 95% confidence intervals for adults, some normal patients may fall outside of this range especially when indexing for BSA 2D ECHO LV Diastolic Diameter PLAX 4.4 cm 4.2-5.8 (M) / 3.8-5.2 (F) LV Systolic Diameter PLAX 2.9 cm 2.5-4.0 (M) / 2.2-3.5 (F) LV Fractional Shortening PLAX 34.4 % IVS Diastolic Thickness 1.7 cm 0.6-1.0 (M) / 0.6-0.9 (F) IVS Systolic Thickness 2.3 cm LVPW Diastolic Thickness 1.8 cm 0.6-1.0 (M) / 0.6-0.9 (F) LVPW Systolic Thickness 1.9 cm LV Relative Wall Thickness 0.79 <= 0.42 LVOT Diameter 2 cm Aortic Root Diameter 3 cm LA Systolic Diameter LX 4.5 cm LA Ao Ratio 1.5 LV Diastolic Volume MOD BP 82.4 cm 62-150 cm (M) / 46-106 cm (F) LV Systolic Volume MOD BP 29.6 cm 21-61 cm (M) / 14-42 cm (F) LV Ejection Fraction MOD BP 64.1 % 52-72 (M) / 54-74 (F) LV Stroke Volume MOD BP 52.8 cm LV Cardiac Output MOD BP 4119 cm/min LV Cardiac Index MOD BP 2160 cm/minm LA Volume 91 cm LA Volume Index 47.7 cm/m 16 - 34 cm/m LV Mass by linear method 325 g LV Mass by linear method Index 170 g/m DOPPLER AV Peak Velocity 191 cm/s AV Peak Gradient 14.6 mmHg AV Mean Velocity 137 cm/s AV Mean Gradient 9 mmHg AV Velocity Time Integral 30.8 cm LVOT Peak Velocity 139 cm/s LVOT Peak Gradient 7.7 mmHg LVOT Mean Velocity 103 cm/s LVOT Mean Gradient 5 mmHg LVOT Velocity Time Integral 24.2 cm LVOT Stroke Volume 76 cm AV Area Cont Eq vti 2.5 cm AV Area Cont Eq pk 2.3 cm MV Peak Velocity 148 cm/s MV Peak Gradient 8.8 mmHg MV Mean Velocity 95.7 cm/s MV Mean Gradient 4 mmHg MV Velocity Time Integral 29.3 cm MV Area Cont Eq vti 2.6 cm Mitral E Point Velocity 142 cm/s Mitral A Point Velocity 114 cm/s Mitral E to A Ratio 1.2 MV Deceleration Harnett 615 cm/s MV Pressure Half Time 71 ms MV Area PHT 3.1 cm MV Deceleration Time 236 ms MR Peak Velocity 506 cm/s MR Peak Gradient 102 mmHg MR Mean Velocity 399 cm/s MR Mean Gradient 70 mmHg MR Velocity Time Integral 135 cm PV Peak Velocity 96.1 cm/s PV Peak Gradient 3.7 mmHg PV Mean Velocity 69.7 cm/s PV Mean Gradient 2 mmHg PV Velocity Time Integral 19.1 cm RVOT Peak Velocity 81.3 cm/s RVOT Peak Gradient 2.6 mmHg RVOT Mean Velocity 63.8 cm/s RVOT Mean Gradient 2 mmHg RVOT Velocity Time Integral 19 cm LV E' Lateral Velocity 7.3 cm/s Mitral E to LV E' Lateral Ratio 19.5 LV E' Septal Velocity 7.1 cm/s Mitral E to LV E' Septal Ratio 20.1 RV S' Velocity 13.5 cm/s >9.5 cm/s FINDINGS Left Ventricle The left ventricle is normal in size. Severe concentric left ventricular hypertropy. LV systolic function is hyperdynamic. LVEF is 60-65%. There are no regional wall motion abnormalities. There is impaired LV relaxation with elevated filling pressures (Grade II). Right Ventricle The right ventricle is normal in size and systolic function. TAPSE is measured at 2.7 cm. Right Atrium The right atrium is normal in size. Left Atrium The left atrium is severely enlarged in size. IAS Mitral Valve Mitral valve with mild thickening without significant stenosis or prolapse. There is mild mitral regurgitation. Aortic Valve The aortic valve is trileaflet and structurally normal. There is no aortic stenosis. There is no aortic regurgitation. Tricuspid Valve Structurally normal tricuspid valve without significant stenosis. There is trace tricuspid regurgitation. Insufficient TR jet to estimate pulmonary artery systolic pressure. Pulmonic Valve Structurally normal pulmonic valve without significant stenosis. There is trace pulmonic regurgitation. Pericardium Moderate circumferential pericardial effusion is present measuring 1.2 cm. No echocardiographic findings to suggest a hemodynamically significant pericardial effusion. Aorta Normal aortic root for body surface area. IVC The inferior vena cava is normal in size. Greater than 50% respiratory change in dimension. CONCLUSIONS The left ventricle is normal in size. There is severe concentric hypertrophy noted, with normal systolic function and an estimated ejection fraction of 60- 65%. There is impaired LV relaxation with elevated filling pressures (Grade II). Global strain measured at -25.1 ms, with apical sparing noted. The right ventricle is normal in size and systolic function. Left atrium is severely enlarged. No significant valvular abnormalities are seen. Insufficient TR jet to estimate pulmonary artery systolic pressure. Mild to moderate sized circumferential pericardial effusion is present measuring 1.2 cm without echocardiographic findings to suggest a hemodynamically significant pericardial effusion. Compared to prior TTE from 2019, severe left ventricular hypertrophy is noted, with worsening diastolic function and a new pericardial effusion is seen. Consider infiltrative disease such as cardiac amyloidosis. Jazz Bey (Electronically Signed) Final Date: 15 March 2020 16:00 2D ECHO LV Diastolic Diameter PLAX 4.4 cm 4.2-5.8 (M) / 3.8-5.2 (F) LV Systolic Diameter PLAX 2.9 cm 2.5-4.0 (M) / 2.2-3.5 (F) LV Fractional Shortening PLAX 34.4 % IVS Diastolic Thickness 1.7 cm 0.6-1.0 (M) / 0.6-0.9 (F) IVS Systolic Thickness 2.3 cm LVPW Diastolic Thickness 1.8 cm 0.6-1.0 (M) / 0.6-0.9 (F) LVPW Systolic Thickness 1.9 cm LV Relative Wall Thickness 0.79 <= 0.42 LVOT Diameter 2 cm Aortic Root Diameter 3 cm LA Systolic Diameter LX 4.5 cm LA Ao Ratio 1.5 LV Diastolic Volume MOD BP 82.4 cm 62-150 cm (M) / 46-106 cm (F) LV Systolic Volume MOD BP 29.6 cm 21-61 cm (M) / 14-42 cm (F) LV Ejection Fraction MOD BP 64.1 % 52-72 (M) / 54-74 (F) LV Stroke Volume MOD BP 52.8 cm LV Cardiac Output MOD BP 4119 cm/min LV Cardiac Index MOD BP 2160 cm/minm LA Volume 91 cm LA Volume Index 47.7 cm/m 16 - 34 cm/m LV Mass by linear method 325 g LV Mass by linear method Index 170 g/m DOPPLER AV Peak Velocity 191 cm/s AV Peak Gradient 14.6 mmHg AV Mean Velocity 137 cm/s AV Mean Gradient 9 mmHg AV Velocity Time Integral 30.8 cm LVOT Peak Velocity 139 cm/s LVOT Peak Gradient 7.7 mmHg LVOT Mean Velocity 103 cm/s LVOT Mean Gradient 5 mmHg LVOT Velocity Time Integral 24.2 cm LVOT Stroke Volume 76 cm AV Area Cont Eq vti 2.5 cm AV Area Cont Eq pk 2.3 cm MV Peak Velocity 148 cm/s MV Peak Gradient 8.8 mmHg MV Mean Velocity 95.7 cm/s MV Mean Gradient 4 mmHg MV Velocity Time Integral 29.3 cm MV Area Cont Eq vti 2.6 cm Mitral E Point Velocity 142 cm/s Mitral A Point Velocity 114 cm/s Mitral E to A Ratio 1.2 MV Deceleration Harnett 615 cm/s MV Pressure Half Time 71 ms MV Area PHT 3.1 cm MV Deceleration Time 236 ms MR Peak Velocity 506 cm/s MR Peak Gradient 102 mmHg MR Mean Velocity 399 cm/s MR Mean Gradient 70 mmHg MR Velocity Time Integral 135 cm PV Peak Velocity 96.1 cm/s PV Peak Gradient 3.7 mmHg PV Mean Velocity 69.7 cm/s PV Mean Gradient 2 mmHg PV Velocity Time Integral 19.1 cm RVOT Peak Velocity 81.3 cm/s RVOT Peak Gradient 2.6 mmHg RVOT Mean Velocity 63.8 cm/s RVOT Mean Gradient 2 mmHg RVOT Velocity Time Integral 19 cm LV E' Lateral Velocity 7.3 cm/s Mitral E to LV E' Lateral Ratio 19.5 LV E' Septal Velocity 7.1 cm/s Mitral E to LV E' Septal Ratio 20.1 RV S' Velocity 13.5 cm/s >9.5 cm/s Specimen Performing Organization Address City/State/[facility] one Number SMS * Hemoglobin A1C (03/15/2020 5:06 AM CDT) Only the most recent of 2 results within the time period is included. Hemoglobin A1c 6.6 (H) 4.3 - 6.1 % [facility] Estimated 143 (H) 70 - 110 mg/dL [facility] Average Glucose Specimen Blood Performing Organization Address [facility] one Number [facility] [address] [place] [address] [phone] * Calcium, Ionized (03/15/2020 5:06 AM CDT) Calcium, 1.18 1.15 - 1.29 mmol/L [facility] Ionized Specimen Blood Performing Organization Address [facility] one Number [facility] [address] [place] [address] [phone] * Urine Drug Screen (03/14/2020 10:13 PM CDT) pH, Ur 7.0 [facility] Opiate, Ur Negative Negative [facility] Comment: Calibrated Standard: Morphine Positive if urine level > or = 300 ng/dL Amphetamine Negative Negative [facility] Comment: Calibrated Standard: D-Methamphetamine Positive if urine level > or = 1000 ng/mL Barbiturate Negative Negative [facility] Comment: Calibrated Standard: Secobarbital Positive if urine level is > or = 200 ng/mL Benzodiazepine Negative Negative [facility] Comment: Calibrated Standard: Lormethazepam Positive if urine level is > or = 200 ng/mL Cocaine Negative Negative [facility] Comment: Calibrated Standard: Benzoylecgonine Positive if urine level > or = 300 ng/dL PCP Negative Negative [facility] Comment: Calibrated Standard: Phencyclidine Positive if urine level > or = 25 ng/dL Cannabinoid Negative Negative [facility] Comment: Calibrated Standard: 11 nor-delta(9)-THC carboxylic acid Positive if urine level > or = 50 ng/mL Specimen Urine - Voided, urine Performing Organization Address [facility] one Number [facility] [address] [place] [address] [phone] * Total Protein/Creatinine Ratio, Urine (03/14/2020 10:13 PM CDT) Only the most recent of 2 results within the time period is included. Creatinine, 19 (L) 20 - 320 mg/dL [facility] Urine Total Protein, 1.99 (H) <0.19 g/L [facility] Urine Total 10.5 (H) 0 - 0.5 % % [facility] Protein/Creatin ine Ratio, Urine Specimen Urine - Voided, urine Performing Organization Address [facility] [address]/[facility] one Number [facility] [address] [place] [phone] * TSH [Thyroid Stimulating Hormone] (03/14/2020 9:22 PM CDT) Only the most recent of 2 results within the time period is included. TSH 3.00 0.45 - 5.33 uIU/mL [facility] [place] Comment: If , please see the following reference ranges (not verified by lab): 1st Trimester: 0.05 -3.70 uIU/mL 2nd Trimester: 0.31 -4.35 uIU/mL 3rd Trimester: 0.41 - 5.18 uIU/mL Specimen Blood Performing Organization Address [facility] [address]/[facility] one Number [facility] [address] [place] [phone] * Lipid Profile (03/14/2020 9:22 PM CDT) Cholesterol 211.0 (H) <=200.0 mg/dL [facility] Comment: Desirable: < 200.0 mg/dL Borderline: 200 - 240 mg/dL High Risk: > 240 mg/dL Triglyceride 71 <150 mg/dL [facility] Comment: Normal: < 150.0 mg/dL Borderline: 150-199 mg/dL High: 200-499 mg/dL Very High: >= 500 mg/dL HDL 49.0 See Reference Range [facility] Comment: Narrative. mg/dL Increased CHD Risk: < 40.0 mg/dL Decreased CHD Risk: > 60 mg/dL LDL 148 (H) <100 mg/dL [facility] Comment: Optimal: < 100.0 mg/dL Near Optimal: 120-129 mg/dL Borderline: 130-159 mg/dL High: 160-189 mg/dL Very High: >=190 mg/dL Patient [facility] Fasting? Specimen Blood Performing Organization Address [facility] one Number [facility] [address] [place] [address] * Coronavirus, CoVID-19, (ANJALI) (03/14/2020 6:10 PM CDT) CoVID-19 Not DetectedComment: The 2019 Not Detected [facility] (SARS-CoV-2) novel coronavirus (SARS-CoV -2) target nucleic acids are not detected. 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1980 Requested By: PRATIK Olivares Order Number: [id number] Reading MD: Freeman BERMEO Measurements Intervals [place] Rate: 94 P: 67 CA: 175 QRS: 92 QRSD: 80 T: 49 QT: 383 QTc: 481 Interpretive Statements SINUS RHYTHM BORDERLINE RIGHT AXIS DEVIATION NONSPECIFIC T-WAVE ABNORMALITY Abnormal ECG Electronically Signed On 03-15-2020 11:47:36 CDT by Freeman BERMEO Specimen Performing Organization Address [facility] one Number [facility] * 12 LEAD EKG (03/14/2020 5:49 PM CDT) 12 LEAD EKG FOR [facility] Test Date: 2020-03-14 Pat Name: EMILY THOMAS Department: 6520 Room: 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: [id number] : 1980 Requested By: MARTHA AQUINO Order Number: [id number] Reading MD: Freeman BERMEO Measurements Intervals [place] Rate: 0 P: CA: 0 QRS: QRSD: 0 T: QT: 0 QTc: 0 Interpretive Statements Technically Poor Tracing affects interpretation SINUS RHYTHM Non-specific ST-T changes NO FURTHER INTERPRETATION POSSIBLE ATYPICAL ECG Electronically Signed On 03-14-2020 18:30:42 CDT by Freeman BERMEO Specimen Performing Organization Address [facility] [address]/[facility] one Number SMS * Free T4 (03/14/2020 5:32 PM CDT) Free T4 1.18 0.64 - 1.42 ng/dl [facility] Specimen Blood Performing Organization Address [facility] [address]/[facility] one Number [facility] [address] [place] [address] * CT CHEST PE PROTOCOL (03/14/2020 3:23 PM CDT) Specimen Impressions Performed At IMPRESSION: SMS 1. No pulmonary embolus is identified to the segmental level. 2. CT evidence for right heart strain is absent. 3. Cardiomegaly with evidence of flui d overload including bilateral pleural fluid, pericardial fluid, pulmo nary edema and body wall edema. This picture is concerning for congesti ve heart failure. 4. Scattered peripheral ground glass opacities with mild central peribronchial cuffing and thickening of the left oblique fissure are suggestive of pulmonary edema. Infectio us process could be considered in the appropriate clinical setting. 5. Small hiatal hernia This [facility] radiology report is a prelimi nary resident dictation until finalized by an attending. Changes to this preliminary report may occur in an additional preliminary or finaliz ed version. Dictated By: Martha Perez MD, 03/14/20 20 4:12 PM I have reviewed the study and agree wit h the findings in this report. Signed By: Shawanda Esqueda MD, 0 4:24 PM Narrative Performed At EXAM: CTA CHEST WITH CONTRAST SMS DATE: 03/14/2020 3:26 PM INDICATION: PE suspected, low pretest p katie. Chest pain, unspecified type ADDITIONAL INFORMATION: None. COMPARISON: None TECHNIQUE: Volumetric CT of the chest i s acquired during pulmonary arterial phase following intravenous ad ministration of contrast. Axial, sagittal, coronal, and oblique MIP elvia nstructions are created at the acquisition workstation. IV contrast: 40 mL of Omnipaque 350 DLP (mGy-cm): 520 FINDINGS: Budder: Noncontributory. Lines and tubes: None. Lower neck: Unremarkable. Axilla: Clear. Airway: Clear. Lungs and pleura: There are scattered peripheral ground glass opacities throughout the right lung and in the le ft lower lobe. Mild septal thickening is noted. There is mild cent ral peribronchial cuffing seen bilaterally. There is dependent bilater al subsegmental atelectasis in the lower lobes. There is mild thickeni ng of the left oblique fissure. Bilateral small amount of simple fluid is noted in the pleura. There is no pneumothorax. Mediastinum, john and intrathoracic lym ph nodes: Normal. Heart, pericardium and great vessels: Pulmonary emboli: No pulmonary embolus is identified to the segmental level. Pulmonary trunk: 2.8 cm, normal. Ascending aorta: 2.9 cm, normal. Heart: There is cardiomegaly with cardi othoracic index at 0.64. There is hypertrophy of the left ventricle. No r ight heart strain. RV:LV ratio is less than 1 (Normal <1) Pericardium: There is a small amount of pericardial fluid Upper abdomen: There is a small hiatal hernia. Bones: No acute abnormality. Soft tissues: There is a 8 mm lesion in the right breast as seen on series 2, image 80 which is nonspecific . Please correlate with mammogram if clinically indicated. Procedure Note Interface, Rad/Mammog In - 03/14/2020 4:29 PM CDT EXAM: CTA CHEST WITH CONTRAST DATE: 03/14/2020 3:26 PM INDICATION: PE suspected, low pretest prob. Chest pain, unspecified type ADDITIONAL INFORMATION: None. COMPARISON: None TECHNIQUE: Volumetric CT of the chest is acquired during pulmonary arterial phase following intravenous administration of contrast. Axial, sagittal, coronal, and oblique MIP reconstructions are created at the acquisition workstation. IV contrast: 40 mL of Omnipaque 350 DLP (mGy-cm): 520 FINDINGS: Budder: Noncontributory. Lines and tubes: None. Lower neck: Unremarkable. Axilla: Clear. Airway: Clear. Lungs and pleura: There are scattered peripheral ground glass opacities throughout the right lung and in the left lower lobe. Mild septal thickening is noted. There is mild central peribronchial cuffing seen bilaterally. There is dependent bilateral subsegmental atelectasis in the lower lobes. There is mild thickening of the left oblique fissure. Bilateral small amount of simple fluid is noted in the pleura. There is no pneumothorax. Mediastinum, john and intrathoracic lymph nodes: Normal. Heart, pericardium and great vessels: Pulmonary emboli: No pulmonary embolus is identified to the segmental level. Pulmonary trunk: 2.8 cm, normal. Ascending aorta: 2.9 cm, normal. Heart: There is cardiomegaly with cardiothoracic index at 0.64. There is hypertrophy of the left ventricle. No right heart strain. RV:LV ratio is less than 1 (Normal <1) Pericardium: There is a small amount of pericardial fluid Upper abdomen: There is a small hiatal hernia. Bones: No acute abnormality. Soft tissues: There is a 8 mm lesion in the right breast as seen on series 2, image 80 which is nonspecific. Please correlate with mammogram if clinically indicated. IMPRESSION IMPRESSION: 1. No pulmonary embolus is identified t o the segmental level. 2. CT evidence for right heart strain i s absent. 3. Cardiomegaly with evidence of fluid overload including bilateral pleural fluid, pericardial fluid, pulmonary edema and body wall edema. This picture is concerning for congestive heart failure. 4. Scattered peripheral ground glass op acities with mild central peribronchial cuffing and thickening of the left oblique fissure are suggestive of pulmonary edema. Infectious process could be considered in the appropriate clinical setting. 5. Small hiatal hernia This [facility] radiology report is a preliminary resident dictation until finalized by an attending. Changes to this preliminary report may occur in an additional preliminary or finalized version. Dictated By: Martha Perez MD, 03/14/2020 4:12 PM I have reviewed the study and agree with the findings in this report. Signed By: Shawanda Esqueda MD, 03/14/2020 4:24 PM Performing Organization Address [facility] one Number SMS * XRAY CHEST 1 VIEW (03/14/2020 1:55 PM CDT) Specimen Impressions Performed At IMPRESSION: SMS * Cardiomegaly. * No acute pleuropulmonary abnormalit y. Signed By: Shawanda Esqueda MD, 0 3:30 PM Narrative Performed At XRAY CHEST 1 VIEW [facility] DATE: 03/14/2020 1:55 PM CLINICAL INDICATION: CP COMPARISON: Chest x-ray performed 2018 TECHNIQUE: A single AP view of the ches t is obtained using portable technique, semierect, and submitted for interpretation. DISCUSSION: The lungs appear clear. Costophrenic angles are sharp. No pleur al effusion is demonstrated. No pneumothorax in the position of the study. The cardiac size remains enlarged. The bones demonstrate no destructive or traumatic lesion. Procedure Note Interface, Rad/Mammog In - 03/14/2020 3:35 PM CDT XRAY CHEST 1 VIEW DATE: 03/14/2020 1:55 PM CLINICAL INDICATION: CP COMPARISON: Chest x-ray performed 09/12/2018 TECHNIQUE: A single AP view of the chest is obtained using portable technique, semierect, and submitted for interpretation. DISCUSSION: The lungs appear clear. Costophrenic angles are sharp. No pleural effusion is demonstrated. No pneumothorax in the position of the study. The cardiac size remains enlarged. The bones demonstrate no destructive or traumatic lesion. IMPRESSION IMPRESSION: * Cardiomegaly. * No acute pleuropulmonary abnormality. Signed By: Shawanda sEqueda MD, 03/14/2020 3:30 PM Performing Organization Address [facility] [address]/[facility] one Number SMS * Urinalysis (03/14/2020 1:16 PM CDT) Only the most recent of 2 results within the time period is included. Color Straw Colorless, Straw, [facility] Yellow Clarity Clear Clear [facility] Spec [place], 1.010 1.001 - 1.035 [facility] Ur pH, Ur 7.0 5.0 - 8.0 [facility] Protein, Ur 3+ (A) Negative mg/dL [facility] Glucose, Ur Negative Negative mg/dL [facility] Ketone, Ur Negative Negative mg/dL [facility] Bilirubin, Ur Negative Negative mg/dL [facility] Nitrite, Ur Negative Negative [facility] Leukocyte 1+ (A) Negative mg/dL [facility] Blood, Ur 1+ (A) Negative mg/dL [facility] RBC 10 (H) 0 - 4 /HPF [facility] WBC 7 (H) 0 - 5 /HPF [facility] Epithelial Cell 5 (H) <=1 /HPF [facility] Hyaline Cast 5 (H) 0 - 2 /LPF [facility] Urobilinogen, <1.0 <1.0 EU/dL [facility] Ur Specimen Urine Performing Organization Address [facility] [address]/[facility] one Number [facility] [address] [place], [place] [phone] * POCT Urine - (03/14/2020 1:16 PM CDT) [facility] pass Control negative * BNP [B-Type Natriuretic Peptide] (03/14/2020 1:16 PM CDT) [facility] B Natriuretic 432 (H) <=100 pg/mL [facility] Peptide (BNP) Specimen Blood Performing Organization Address [facility] one Number [facility] [address] [place] [phone] * D-Dimer (03/14/2020 1:16 PM CDT) [facility] D-Dimer 1.93 (H)Comment: Values of 0.27 - 0.48 ug/mL [facility] quantitative D-Dimer less than FEU 0.40 ug/mL FEU have been reported to be associated with a low probability of deep vein thrombosis/pulmonary embolism. This test alone should not be used to rule out DVT/PE. 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1980 Requested By: MAKAYLA CHAVEZ Order Number: [id number] Reading MD: Freeman BERMEO Measurements Intervals [place] Rate: 97 P: 51 CA: 146 QRS: 53 QRSD: 86 T: 63 QT: 366 QTc: 465 Interpretive Statements SINUS RHYTHM Poor anterior R wave progression NONSPECIFIC T-WAVE ABNORMALITY Abnormal ECG Electronically Signed On 03-14-2020 12:01:50 CDT by Freeman BERMEO Specimen Performing Organization Address [facility] one Number SMS * Genital Wet Mount with HARESH (08/06/2019 4:13 PM CDT) [facility] Yeast by Wet Yeast seen (A) [facility] Mount Yeast by HARESH Yeast seen (A) [facility] Clue Cells No Clue cells seen [facility] Epithelial Epithelial cells seen [facility] Cells WBCs WBCs seen [facility] Trichomonas No Trichomonas seen [facility] Specimen Genital - Vagina Performing Organization Address [facility] [address]/[facility] one Number [facility] [address] [place] [phone] [facility] * Chlam/GC DNA Amplification (08/06/2019 4:12 PM CDT) Chlamydia Negative Negative [facility] tr[facility] N. gonorrhoeae Negative Negative [facility] Specimen Genital - Cervix, endocervix Narrative Performed At This test utilizes TinyCircuitsima Combo 2 Assay for target amplification of rRNA [facility] for the qualitative detection of Chlamy albertina trachomatis and Neisseria gonorrhoeae. 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 Measurements Intervals [place] Rate: 89 P: 40 CA: 162 QRS: 38 QRSD: 78 T: 68 QT: 390 QTc: 476 Interpretive Statements SINUS RHYTHM Electronically Signed On 05-02-2019 16:58:15 INSTRUCTIONAL ASSISTANT by Sherine Scott M.D. Specimen Performing Organization Address [facility] [address]/[facility] one Number [facility] * Electrophoresis, 24hr Urine (05/02/2019 3:25 PM INSTRUCTIONAL ASSISTANT) Volume 1,825 mL [facility] Protein, Ur Comment: 15.44 [facility] Comment Marked proteinuria, no Bence [facility] [place] protein. [facility] Electronically signed by : Izzy Stewart M.D., PhD., Pathologist/ [facility] ([id number]) CPT 62861 Specimen Urine - Voided, urine Performing Organization Address City/State/Zipcode Ph one Number [facility] [address] [place] [address] * H. Pylori Stool Ag (05/02/2019 3:10 PM INSTRUCTIONAL ASSISTANT) H. pylori Stool Negative Negative [facility] Ag, EIA Specimen Stool - Feces Narrative Performed At Performed at: 01 - [facility] [address] [place] [address] Deputy Commissioner: Lorna Duran MD, Phone : [phone] Performing Organization Address City/State/Zipcode Ph one Number [facility] [address] [place] [address] after 05/01/2019 Insurance Type Payer Benefit Subscriber ID Effective Phone Address Plan / Dates Group [place]ICA[place] [id number] xxxxxxxxx 2018-P [phone] [facility] [address] [place] [phone] Advance Directives Date Inactivated Comments Code Status Date Activated 03/19/2020 8:09 AM Full Code 03/14/2020 8:11 PM
--- OUTSIDE RECORDS SUMMARY | 2020-05-01 11:14 | XMS REPORT | Continuity of Care Document ---
Author Author [facility] t Organization [facility] Address [address] [place] [id number] Phone Unavailable Care Team Providers Care Vp Product Marketing Name Role Phone Jun CRESPO, Reggie PCP [phone] Jun CRESPO, Reggie Attphys [phone] Rina CRESPO, Fanny Attphys Erin Fuentes Attphys Unavailable Claire CRESPO, G Nithin Attphys [phone] Jet CRESPO, M [place]ano Attphys Marques CRESPO, Jorden Velasquez Attphys Natalio CRESPO, Elise Larios Attphys Alfredo CokerMD, N Nurai Attphys Guille HARRIS, Ayla Khan Attphys Unavailable Santo CRESPO, Tresa Hagen Attphys Kelsie CHATMAN, R Valerie Attphys Nate Tena LVN Attphys Unavailable Payers Payer Name Policy Type Policy Number Effective Date Expiration Date Keegan padilla [place] MEDICA[place]68 WOMEN'S HEALTH [id number], [place] [address] xxxxxxxxx 2018 00:00:00 [facility] Condition Name Condition Details Condition Category Status Onset Date Resolution Date Last Treatment Date Treating Clinician Comments Source Congestive heart failure Congestive heart failure Disease Acti ve 2020-03-21 00:00:00 [facility] CKD (chronic kidney disease) stage 4, GFR 15-29 ml/min CKD (chronic kidney disease) stage 4, GFR 15-29 ml/min Disease Active 2020-03-21 00:00:00 [facility] Acute exacerbation of CHF (congestive heart failure) A cute exacerbation of CHF (congestive heart failure) Disease Active 2020-03-17 00:00:00 [facility] Acute on chronic diastolic heart failure 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 Disease Active 2020-03-14 00:00:00 [facility] Proteinuria Proteinuria Disease Active 2019-08-06 00:00:00 [facility] Premenopausal menorrhagia Premenopausal menorrhagia Disease Ac tive 2019-08-06 00:00:00 [facility] Cyclic perimenstrual edema Cyclic perimenstrual edema Disease Active 2019-05-21 00:00:00 [facility] Abnormal urine- protein /RBCs -needs urine culture Abn ormal urine- protein /RBCs -needs urine culture Disease Active 2019-05-01 00:00:00 [facility] Uncontrolled hypertension-per renal dopp ler -no renal art stenosis ; aldosterone /renin/ urine metanephrine neg ; tte- diastolic dysfunction ;proteinuria + urine electrophoresis pending Uncontrolled hypertension-per renal dopp ler -no renal art stenosis ; aldosterone /renin/ urine metanephrine neg ; tte- diastolic dysfunction ;proteinuria + urine electrophoresis pending Disease Ac tive 2019-04-27 00:00:00 [facility] Renal calculus Renal calculus Disease Active 2019-04-27 00:00:00 [facility] Premenstrual symptom- edema , depresssed mood Premenst rual symptom- edema , depresssed mood Disease Active 2019-04-25 00:00:00 [facility] Nonintractable headache Nonintractable headache Disease Active 2017-02-03 00:00:00 [facility] Chest pain Chest pain Disease Active 2017-02-02 00:00:00 [facility] Medication refill-genital herpes - 3 times last yr Med ication refill-genital herpes - 3 times last yr Disease Active 2017-01-04 00:00:00 [facility] Anemia, unspecified Anemia, unspecified Disease Active 2016-03-18 00:00 :00 [facility] Influenza vaccination declined Influenza vaccination declined Disea se Active 2016-03-18 00:00:00 [facility] Non compliance with medical treatment- I have 3 kids 6th grade ; working , school ; single parent Non compliance with medical treatment- I have 3 kids 6th grade ; working , school ; single parent Disease Active 2016-03-01 0 0:00:00 [facility] Microalbuminuria Microalbuminuria Disease Active 2015-09-26 00:00:00 [facility] Stress- working 5 days a wk ; school 4 d ays a wk; single mother - 3 kids-11 yrs ( twins and one son) ; mother helps Stress- working 5 days a wk ; school 4 days a wk; single mother - 3 kids-11 yrs ( twins and one son) ; mother helps Disease Active 2015-09-10 00:00:00 [facility] Genital herpes simplex- 7 times 2014 ; to start suppre sive therapy Genital herpes simplex- 7 times 2014 ; to start suppresive therapy Disease Active 2015-08-07 00:00:00 [facility] Leg pain Leg pain Disease Active 2015-03-15 00:00:00 [facility] Myopia with astigmatism Myopia with astigmatism Disease Active 2014-10-18 00:00:00 [facility] Irregular periods/menstrual cycles Irregular periods/menstrual c ycles Disease Active 2013-10-24 00:00:00 [facility] Fibroids Fibroids Disease Active 2013-10-24 00:00:00 [facility] PCOS (polycystic ovarian syndrome) PCOS (polycystic ovarian synd sushma) Disease Active 2012-01-26 00:00:00 [facility] Tinea pedis Tinea pedis Disease Active 2009-08-02 00:00:00 [facility] Callus Callus Disease Active 2009-08-02 00:00:00 [facility] Diabetes mellitus type 2, uncontrolled Diabetes mellitus typ e 2, uncontrolled Disease Active 2009-06-19 00:00:00 [facility] HTN (hypertension) HTN (hypertension) Disease Active 2007-03-11 00:00:0 0 [facility] History of Past Illness Condition Name Condition Details Condition Category Status Onset Date Resolution Date Last Treatment Date Treating Clinician Comments Source Bloating symptom Bloating symptom Disease Resolved 2019-08-06 00 :00:00 2020-03-26 00:00:00 2020-03-26 15:40:20 [facility] Allergies, Adverse Reactions, Alerts This patient has no known allergies or adverse reactions. Family History Family Member Diagnosis Comments Start Date Stop Date Source Natural brother Hypertension [facility] Maternal grandfather Cancer [facility] Natural mother Diabetes [facility] Natural mother Hypertension [facility] Social History Social Habit Start Date Stop Date Quantity Comments Source Sex Assigned [facility] Exposure to SARS-CoV-2 (event) Not sure [facility] Alcohol intake 2020-05-01 00:00:00 2020-05-01 00:00:00 Current non-drinker of alcohol (finding) [facility] History SDOH Food Worry 2019-08-06 00:00:00 2019-08-06 00:00:00 2 [facility] SDKS Food Scarcity 2019-08-06 00:00:00 2019-08-06 00:00:00 2 [facility] Tobacco Comment 2011-11-24 00:00:00 2011-11-24 00:00:00 Non tobacco u ser [facility] Smoking Status Start Date Stop Date Source Never smoker [facility] Medications Ordered Medication Name Filled Medication Name Start Date Stop Da te Current Medication? Ordering Clinician Indication Dosage Frequency Signature (SIG) Comments Components Source NIFEdipine (PROCARDIA XL) 90 mg extended release tablet 2020-03-26 00:00:00 Yes Essential hypertension 90mg QD Take 1 tablet by mouth da bill. [facility] isosorbide mononitrate (IMDUR) 30 mg extended release tablet 2020-03-26 00:00:00 Yes Essential hypertension 30mg QD Take 1 t ablet by mouth daily. [facility] atorvastatin (LIPITOR) 80 mg tablet 2020-03-26 00:00:00 Yes Essential hypertension 80mg Take 1 tablet by mouth at bedtime nightly. [facility] glimepiride (AMARYL) 4 mg tablet 2020-03-26 00:00:00 Yes Controlled type 2 diabetes mellitus with stage 4 chronic kidney disease, without long-term current use of insulin 4mg QD Take 1 tablet by mouth daily (with breakfas t). [facility] furosemide (LASIX) 40 mg tablet 2020-03-26 00:00:00 Yes Essential hypertension 80mg Q.5D Take 2 tablets by mouth 2 times daily. [facility] linaGLIPtin (TRADJENTA) 5 mg tablet 2020-03-26 00:00:00 Yes Controlled type 2 diabetes mellitus with stage 4 chronic kidney disease, without long-term current use of insulin 5mg QD Take 1 tablet by mouth daily. [facility] metoprolol succinate (TOPROL XL) 100 mg extended release tab let 2020-03-26 00:00:00 Yes Paroxysmal A-fib 100mg Prashanth e 1 tablet by mouth every 12 hours. [facility] lancets 28 gauge 2020-03-26 00:00:00 Yes Controlled type 2 diabetes mellitus with stage 4 chronic kidney disease, without long-term current use of insulin 1{each} Q.5D Use 2 times daily [facility] blood glucose test strips 2020-03-26 00:00:00 Yes Controlled type 2 diabetes mellitus with stage 4 chronic kidney disease, without long-term current use of insulin 1{each} Q.5D Use 2 times daily. [facility] blood glucose meter 2020-03-26 00:00:00 Yes Controlled type 2 diabetes mellitus with stage 4 chronic kidney disease, without long-term current use of insulin Use as directed.. [facility] 2020-03-26 00:00:00 Yes Congestive heart failure, unspecified HF chronicity, unspecified heart failure type Blood pressure monitor to check BP. [facility] 2020-03-26 00:00:00 Yes Congestive heart failure, unspecified HF chronicity, unspecified heart failure type Scale to check weight. [facility] tropicamide (MYDRIACYL) 0.5 % ophthalmic solution 2020-03-21 00:00:00 2020-03-21 23:59:00 No Preventative health care 1[drp] Instill 1 Drop in each eye once as needed for up to 1 dose (for poor retina scan image). [facility] atorvastatin (LIPITOR) 80 mg tablet 2020-03-19 00:00:00 Yes Essential hypertension 80mg Take 1 tablet by mouth at bedtime nightly. [facility] NIFEdipine (PROCARDIA XL) 90 mg extended release tablet 2020-03-19 00:00:00 Yes Essential hypertension 90mg QD Take 1 tablet by mouth da bill. [facility] aspirin (ASPIRIN) 81 mg chewable tablet 2020-03-19 00:00:00 Yes Essential hypertension 81mg QD Chew and swallow 1 tablet by mouth daily. [facility] isosorbide mononitrate (IMDUR) 30 mg extended release tablet 2020-03-19 00:00:00 Yes Essential hypertension 30mg Take 1 tablet by mouth every morning. [facility] nitroGLYCERIN (NITROSTAT) 0.4 mg sublingual tablet 2020-02 00:00:00 Yes Chest pain in adult Dissolve 1 t ablet under the tongue every 5 minutes as needed, up to 3 times. If chest pain persists, call 911. [facility] metoprolol succinate (TOPROL XL) 100 mg extended release tab let 2020-03-19 00:00:00 2020-03-26 00:00:00 No Essential hypertension 100mg Take 1 tablet by mouth every 12 hours. [facility] polyethylene glycol 3350 (GLYCOLAX) 17 gram oral powder pack et 2020-03-19 00:00:00 2020-03-22 23:59:00 No Fibroids Mix 17 grams into 4 to 8 ounces of water, juice, soda, tea or coffee and drink as directed. [facility] omeprazole (PRILOSEC) 20 mg delayed release capsule 2020-03-19 00:00:00 2020-03-19 00:00:00 No Other chest pain 40mg QD Take 2 capsules by mouth every morning (before breakfast). [facility] linaGLIPtin (TRADJENTA) 5 mg tablet 2020-03-04 00:00:0 0 2020-03-26 00:00:00 No Inadequately controlled diabetes mellitus 5mg QD Take 1 tablet by mouth daily. [facility] dexlansoprazole (DEXILANT) 60 mg delayed release capsule 2020-03-04 00:00:00 2020-03-26 00:00:00 No Medication refill 60mg QD Take 1 capsule by mouth daily. [facility] hydrALAZINE (APRESOLINE) 25 mg tablet 2020-03-04 00:00 :00 2020-03-26 00:00:00 No Essential hypertension 25mg Take 1 tablet by mouth 3 times daily. [facility] dexlansoprazole (DEXILANT) 60 mg delayed release capsule 2019-11-21 00:00:00 2020-03-04 00:00:00 No Medication refill 60mg QD Take 1 capsule by mouth daily. [facility] hydrOXYzine (ATARAX) 25 mg tablet 2019-10-26 00:00:00 2019 23:59:00 No Itching 25mg Take 1 tablet by mouth 3 times daily as needed for up to 10 days for Itching. [facility] polyethylene glycol (GLYCOLAX) 17 gram/dose oral powder 2019-08-06 00:00:00 Yes Iron deficiency anemia due to chronic blood loss Mix 17 grams into 4 to 8 ounces of water, juice, soda, tea or coffee and drink as directed, one time a day. [facility] NIFEdipine (NIFEDIPINE ER) 60 mg 24 hr extended release tabl et 2019-08-06 00:00:00 2020-03-26 00:00:00 No Essential hypertension 60mg QD Take 1 tablet by mouth daily. [facility] metFORMIN (GLUCOPHAGE) 1,000 mg tablet 9 00:00:00 2020-03-26 00:00:00 No Inadequately controlled diabetes mellitus 1000m g Take 1 tablet by mouth 2 times daily ([facility] meals). [facility] tablet 00:00:00 2020-03-26 00:00:00 No Essential hypertension 50mg Q.5D Ta ke 1 tablet by mouth 2 times daily. [facility] Valsartan 160 mg tablet 2019-08-06 00:00:00 2020-03-26 00:00 :00 No Essential hypertension 160mg QD Take 1 tablet by mouth daily. [facility] furosemide (LASIX) 40 mg tablet 2019-08-06 00:00:00 00:00:00 No Essential hypertension 80mg Q.5D Take 2 tablets by mouth 2 times dena ly. [facility] glimepiride (AMARYL) 4 mg tablet 2019-08-06 00:00:00 2020-02 00:00:00 No Inadequately controlled diabetes mellitus 4mg QD Take 1 tablet by mouth daily (with breakfast). [facility] atorvastatin (LIPITOR) 40 mg tablet 2019-08-06 00:00:0 0 2020-03-26 00:00:00 No Inadequately controlled diabetes mellitus 40mg Take 1 tablet by mouth at bedtime nightly. [facility] hydrALAZINE (APRESOLINE) 25 mg tablet 2019-08-06 00:00 :00 2020-03-04 00:00:00 No Essential hypertension 25mg Take 1 tablet by mouth 3 times daily. [facility] linaGLIPtin (TRADJENTA) 5 mg tablet 2019-08-06 00:00:0 0 2020-03-04 00:00:00 No Inadequately controlled diabetes mellitus 5mg QD Take 1 tablet by mouth daily. [facility] dexlansoprazole (DEXILANT) 60 mg delayed release capsule 2019-08-06 00:00:00 2019-11-21 00:00:00 No 60mg QD Take 1 capsule by mo ut daily. [facility] fluconazole (DIFLUCAN) 150 mg tablet 2019-08-06 00:00: 00 2019-10-26 00:00:00 No Vaginal discharge 150mg Take 1 tablet by mouth weekly. [facility] spironolactone (ALDACTONE) 50 mg tablet 00:00:00 2019-08-06 00:00:00 No Essential hypertension 50mg Q.5D Ta ke 1 tablet by mouth 2 times daily. [facility] furosemide (LASIX) 40 mg tablet 2019-08-06 00:00:00 00:00:00 No Essential hypertension 80mg Q.5D Take 2 tablets by mouth 2 times dena ly. [facility] hydrALAZINE (APRESOLINE) 25 mg tablet 2019-08-06 00:00 :00 2019-08-06 00:00:00 No Essential hypertension 25mg Take 1 tablet by mouth 3 times daily. [facility] valsartan (DIOVAN) 80 mg tablet 2019-08-06 00:00:00 00:00:00 No Essential hypertension 80mg Q.5D Take 1 tablet by mouth 2 times suzanna y [facility] NIFEdipine (NIFEDIPINE ER) 60 mg 24 hr extended release tabl et 2019-08-06 00:00:00 2019-08-06 00:00:00 No Essential hypertension 60mg QD Take 1 tablet by mouth daily. [facility] metFORMIN (GLUCOPHAGE) 1,000 mg tablet 9 00:00:00 2019-08-06 00:00:00 No Inadequately controlled diabetes mellitus 1000m g Take 1 tablet by mouth 2 times daily (with meals). [facility] 2019-08-06 00:00:00 2019-08-06 00:00 :00 No Essential hypertension 160mg QD Take 1 tablet by mouth daily. [facility] polyethylene glycol (GLYCOLAX) 17 gram/dose oral powder 2019-08-06 00:00:00 2019-08-06 00:00:00 No Iron deficiency anemia due to chronic blood loss Mix 17 grams into 4 to 8 ounces of water, juice, soda, tea or coffee and drink as directed, one time a day. [facility] spironolactone (ALDACTONE) 50 mg tablet 00:00:2019-08-06 00:00:00 No Essential hypertension 50mg Q.5D Ta ke 1 tablet by mouth 2 times daily. [facility] Valsartan 160 mg tablet 2019-08-06 00:00:00 2019-08-06 00:00 :00 No Essential hypertension 160mg QD Take 1 tablet by mouth daily. [facility] dexlansoprazole (DEXILANT) 60 mg delayed release capsule 2019-07-02 00:00:00 2019-08-06 00:00:00 No Abdominal discomfort 60mg QD Take 1 capsule by mouth daily. [facility] spironolactone (ALDACTONE) 25 mg tablet 00:00:00 2019-08-06 00:00:00 No Essential hypertension 25mg QD Take 1 tablet by mouth daily. [facility] NIFEdipine (NIFEDIPINE ER) 60 mg 24 hr extended release tabl et 2019-05-30 00:00:00 2019-08-06 00:00:00 No Essential hypertension 60mg QD Take 1 tablet by mouth daily. [facility] valsartan (DIOVAN) 80 mg tablet 2019-05-30 00:00:00 00:00:00 No Essential hypertension 80mg Q.5D Take 1 tablet by mouth 2 times suzanna y [facility] dexlansoprazole (DEXILANT) 60 mg delayed release capsule 2019-05-30 00:00:00 2019-07-01 00:00:00 No Abdominal discomfort 60mg QD Take 1 capsule by mouth daily. [facility] glimepiride (AMARYL) 4 mg tablet 2019-05-21 00:00:00 2019-07 00:00:00 No Inadequately controlled diabetes mellitus 4mg QD Take 1 tablet by mouth daily (with breakfast). [facility] valsartan (DIOVAN) 80 mg tablet 2019-05-21 00:00:00 00:00:00 No Essential hypertension 80mg Q.5D Take 1 tablet by mouth 2 times daily for 180 days. [facility] cloNIDine HCl (CATAPRES) tablet 0.1 mg 4 16:00:00 2019-05-02 16:07:00 No Essential hypertension .1mg [facility] furosemide (LASIX) 40 mg tablet 2019-05-02 00:00:00 00:00:00 No Essential hypertension 80mg Q.5D Take 2 tablets by mouth 2 times dena ly. [facility] hydrALAZINE (APRESOLINE) 25 mg tablet 2019-05-02 00:00 :00 2019-08-06 00:00:00 No Essential hypertension 25mg Take 1 tablet by mouth 3 times daily. [facility] NIFEdipine (NIFEDIPINE ER) 60 mg 24 hr extended release tabl et 2019-05-02 00:00:00 2019-05-29 00:00:00 No Essential hypertension 60mg QD Take 1 tablet by mouth daily. [facility] NIFEdipine (NIFEDIPINE ER) 60 mg 24 hr extended release tabl et 2019-05-02 00:00:00 2019-05-02 00:00:00 No Essential hypertension 60mg QD Take 1 tablet by mouth daily. [facility] atorvastatin (LIPITOR) 40 mg tablet 2019-04-27 00:00:0 0 2019-08-06 00:00:00 No Inadequately controlled diabetes mellitus 40mg Take 1 tablet by mouth at bedtime nightly. [facility] polyethylene glycol (GLYCOLAX) 17 gram/dose oral powder 2019-04-25 00:00:00 2020-03-26 00:00:00 No Constipation, unspecified constipation type Mix 17 grams into 4 to 8 ounces of water, juice, soda, tea or coffee and drink as directed, one time a day. [facility] dexlansoprazole (DEXILANT) 60 mg delayed release capsule 2019-04-25 00:00:00 2019-05-29 00:00:00 No Abdominal discomfort 60mg QD Take 1 capsule by mouth daily. [facility] glimepiride (AMARYL) 2 mg tablet 2019-04-25 00:00:00 2019-04 00:00:00 No Inadequately controlled diabetes mellitus 2mg QD Take 1 tablet by mouth every morning (before breakfast). [facility] hydrALAZINE (APRESOLINE) 25 mg tablet 2019-04-25 00:00 :00 2019-05-02 00:00:00 No Essential hypertension 25mg Take 1 tablet by mouth 3 times daily. [facility] metFORMIN (GLUCOPHAGE) 1,000 mg tablet 2019-03-30 00:00:00 2019-08-06 00:00:00 No Inadequately controlled diabetes mellitus 1000m g Take 1 tablet by mouth 2 times daily (with meals). [place] [facility] linaGLIPtin (TRADJENTA) 5 mg tablet 2019-04-17 00:00:0 0 2019-08-06 00:00:00 No Inadequately controlled diabetes mellitus 5mg QD Take 1 tablet by mouth daily. [facility] spironolactone (ALDACTONE) 25 mg tablet 00:00:00 2019-07-01 00:00:00 No Essential hypertension 25mg QD Take 1 tablet by mouth daily. [facility] valsartan (DIOVAN) 80 mg tablet 2019-04-17 00:00:00 00:00:00 No Essential hypertension 80mg Q.5D Take 1 tablet by mouth 2 times daily for 180 days. [facility] furosemide (LASIX) 20 mg tablet 2019-04-17 00:00:00 00:00:00 No Essential hypertension 20mg Q.5D Take 1 tablet by mouth 2 times suzanna y. [facility] triamcinolone (KENALOG) 0.1 % ointment 2019-02-17 00:00:00 Yes Pruritic dermatitis Q.5D Apply to affected area 2 times daily. [facility] hydrOXYzine (ATARAX) 10 mg tablet 2019-02-17 00:00:00 2019 00:00:00 No Pruritic dermatitis 10mg Take 1 table t by mouth every 6 hours as needed for Itching May cause DROWSINESS. [facility] lancets 28 gauge 2019-02-14 00:00:00 2020-03-26 00:00:00 No Inadequately controlled diabetes mellitus 1{each} Q.5D Use 2 times daily [facility] blood glucose test strips 2019-02-14 00:00:00 2020-03-26 00: 00:00 No Inadequately controlled diabetes mellitus 1{each} Q.5D Use 2 times suzanna y. [facility] valsartan (DIOVAN) 80 mg tablet 2018-12-22 00:00:00 00:00:00 No Microalbuminuria 80mg Q.5D Take 1 tablet by mouth 2 times daily for 30 days. [facility] PARoxetine (PAXIL) 20 mg tablet 2018-09-15 00:00:00 00:00:00 No Anxiety 20mg Take 1 tablet by mouth every morning. [facility] blood glucose meter 2018-09-12 00:00:00 2020-03-26 00:00:00 No Uncontrolled type 2 diabetes mellitus without complication, without long-term current use of insulin Use as directed.. [facility] pen needle, diabetic 31 gauge x 3/16" needles 2018-02-09 00: 00:00 Yes Inadequately controlled diabetes mellitus Inject under the skin 4 times daily. [facility] blood glucose test strips 2017-01-06 00:00:00 Yes Uncontrolled type 2 diabetes mellitus without complication, without long-term current use of insulin Check blood glucose 2 times weekly [facility] lancets 28 gauge 2017-01-06 00:00:00 Yes Uncontrolled type 2 diabetes mellitus without complication, without long-term current use of insulin Check blood glucose 2 times weekly. [facility] EPINEPHrine (EPIPEN) 0.3 mg/0.3 mL injection 2016-03-18 00:0 0:00 Yes Environmental allergies .3mg Inject 0.3 mL in tramuscularly as needed for Anaphylaxis. [facility] Immunizations Ordered Immunization Name Filled Immunization Name Date Status Comments Source Influenza Vaccine 2016-03-18 00:00:00 Completed [facility] PPD 2007-06-21 00:00:00 Completed [facility] Vital Signs Vital Name Observation Time Observation Value Comments Source Systolic blood pressure 2020-05-01 08:49:00 148 mm[Hg] present [facility] Diastolic blood pressure 2020-05-01 08:49:00 97 mm[Hg] MD betty obando [facility] Heart rate 2020-05-01 08:49:00 76 /min [facility] Body temperature 2020-05-01 07:58:00 36.94 [place] [facility] Respiratory rate 2020-05-01 07:58:00 24 /min [facility] Body height 2020-05-01 07:58:00 154.9 cm [facility] Body weight 2020-05-01 07:58:00 81.103 kg [facility] BMI 2020-05-01 07:58:00 33.78 kg/m2 [facility] Oxygen saturation in Arterial blood by Pulse oximetry 2019-05 07:58:00 100 /min [facility] Procedures Procedure Date / Time Performed Performing Clinician Sour e ECHG EKG PROC 12 LEAD EKG; TRACING ONLY 2020-05-01 08:37:36 Fanny Gregory [facility] COMPREHENSIVE METABOLIC PANEL 2020-04-28 15:07:00 Doripu, In xin [facility] CBC/DIFF 2020-04-28 15:07:00 [facility] 2020-04[facility]28 [facility]:07[facility] GLUCOSE POC 2020-03-18 15:39:00 Omar [facility] 2020-03-18 11:51:00 Omar Lance [facility] h GLUCOSE POC 2020-03-18 07:28:00 Omar Lance [facility] h CBC/DIFF 2020-03-18 05:46:00 Nuria Fuentes [facility] BASIC METABOLIC PANEL 2020-03-18 05:46:00 Nuria Fuentes [facility] CBC 2020-03-18 05:46:00 Nuria Fuentes [facility] GLUCOSE POC 2020-03-17 20:26:00 [facility] MYOCARDIAL PERFUSION SPECT REST/STRES MULTIPLE 2020-03-17 13 :21:40 Kobi Forman [facility] ECHG STRESS TREADMILL - TRACING ONLY (PROSOLVE) 2020-03-17 1 1:46:10 Jeremy Emanuel [facility] CBC/DIFF 2020-03-17 05:04:00 Nuria Fuentes [facility] BASIC METABOLIC PANEL 2020-03-17 05:04:00 Nuria Fuentes [facility] CBC 2020-03-17 05:04:00 Nuria Fuentes [facility] ECHG EKG PROC 12 LEAD EKG; TRACING ONLY 2020-03-16 22:22:39 [facility] Nuria ignacio [facility] GLUCOSE POC 2020-03-16 16:55:00 Omar [facility] 2020-03-16 11:23:00 Omar Lance [facility] h GLUCOSE POC 2020-03-16 07:47:00 Omar [facility] CBC/DIFF 2020-03-16 06:31:00 Nuria Fuentes lucinda lt MAGNESIUM 2020-03-16 06:31:00 Nuria Fuentes [facility] lt PHOSPHORUS 2020-03-16 06:31:00 Nuria Fuentes [facility] BASIC METABOLIC PANEL 2020-03-16 06:31:00 Nuria [facility] CBC 2020-03-16 06:31:00 Nuria Fuentes lucinda lt GLUCOSE POC 2020-03-15 15:36:00 Omar Lance h ECHG EKG PROC 12 LEAD EKG; TRACING ONLY 2020-03-15 14:19:56 Semb erKobi [facility] GLUCOSE POC 2020-03-15 11:15:00 Omar Lance h IRON PROFILE 2020-03-15 10:07:00 Kobi Forman [facility] TROPONIN I 2020-03-15 10:05:00 Kobi Forman [facility] TYPE AND SCREEN 2020-03-15 10:05:00 Kobi Forman [facility] T&S - COLLECTION 2020-03-15 10:05:00 Kobi Forman lth FERRITIN 2020-03-15 10:05:00 Kobi Forman [facility] RBC UNITS 2020-03-15 10:05:00 Nuria Fuentes [facility] ECHG EKG PROC 12 LEAD EKG; TRACING ONLY 2020-03-15 09:46:17 Demario Niall [facility] GLUCOSE POC 2020-03-15 07:43:00 Omar Lance [facility] h ECHG NON-INVASIVE PROC ECHOCARDIOGRAM 2-D W/O CONTRAST (PROSOLVE) 2020-03-15 06:58:00 Niall Hanks [facility] INFUSION PUMP 2020-03-15 05:59:16 Omar Lance h BASIC METABOLIC PANEL 2020-03-15 05:06:00 [facility] 2020-03-15 05:06:00 [facility]DIFF 2020-03-15 05:06:00 [facility] 2020-03-15 05:06:00 Dash [facility] CALCIUM, IONIZED 2020-03-15 05:06:00 DemarioNiall [facility] CBC 2020-03-15 05:06:00 [facility] 2020-03-15 05:06:00 Kobi Forman [facility] HEMOGLOBIN A1C 2020-03-15 05:06:00 Kobi Forman [facility] CONSULT CLINICAL CASE MANAGEMENT (RN/SW) 2020-03-15 00:37:31 Omar Macias [facility] GLUCOSE POC 2020-03-15 00:04:00 Omar Lance [facility] TOTAL PROTEIN/CREATININE RATIO, URINE 2020-03-14 22:13:00 Khadar Molina [facility] URINE DRUG SCREEN 2020-03-14 22:13:00 Aniya [facility] THYROID STIMULATING HORMONE (TSH) 2020-03-14 21:22:00 Ramírez Estrada [facility] TROPONIN I 2020-03-14 21:22:00 Andrea Kwan [facility] LIPID PROFILE 2020-03-14 21:22:00 [facility] TO [facility]YSICAL THERAPY 2020-03-14 20:11:28 Demario [facility] CORONAVIRUS, COVID-19, ANJALI 2020-03-14 18:10:00 Jonel Martha [facility] ECHG EKG PROC 12 LEAD EKG; TRACING ONLY 2020-03-14 17:49:51 Radha mooreBrigitte [facility] ECHG EKG PROC 12 LEAD EKG; TRACING ONLY 2020-03-14 17:49:21 Angel byrne Martha [facility] TROPONIN I 2020-03-14 17:32:00 Jonel Martha [facility] THYROID STIMULATING HORMONE (TSH) 2020-03-14 17:32:00 Demario Liana barreto [facility] FREE T4 2020-03-14 17:32:00 Demario [facility] CT CHEST PE PROTOCOL 2020-03-14 15:23:56 Yuval Mickie [facility] XRAY CHEST 1 VIEW 2020-03-14 13:55:15 Yuval Mickie [facility] BASIC METABOLIC PANEL 2020-03-14 13:16:00 Yuval Mickie [facility] CBC/DIFF 2020-03-14 13:16:00 Mickie Thomas [facility] TROPONIN I 2020-03-14 13:16:00 Mickie Thomas [facility] URINALYSIS 2020-03-14 13:16:00 Mickie Thomas [facility] D-DIMER 2020-03-14 13:16:00 Mickie Thomas [facility] h B-TYPE NATRIURETIC PEPTIDE (BNP) 2020-03-14 13:16:00 Mickie Thomas [facility] CBC 2020-03-14 13:16:00 Mickie Thomas [facility] h URINALYSIS 2020-03-14 13:16:00 Mickie Thomas [facility] h POCT URINE DIPSTICK - 2020-03-14 13:16:00 Mickie Thomas [facility] ECHG EKG PROC 12 LEAD EKG; TRACING ONLY 2020-03-14 11:54:30 Elmo ot, Graciela [facility] GLUCOSE POC 2020-03-14 11:46:00 Unknown, Provider [facility] BASIC METABOLIC PANEL 2019-11-26 07:51:00 Carlos [facility] URINALYSIS 2019-11-26 07:51:00 [facility] TOTAL PROTEIN/CREATININE RATIO, URINE 2019-11-26 07:51:00 Amanuel [facility] IRON PROFILE 2019-11-26 07:51:00 [facility] deborahnfoluwa [facility] FERRITIN 2019-11-26 07:51:00 [facility]oluwa [facility] HEMOGLOBIN A1C 2019-11-26 07:51:00 [facility] yinfoluwa [facility] URINALYSIS 2019-11-26 07:51:00 [facility] yinfoluwa [facility] GENITAL WET MOUNT WITH HARESH 2019-08-06 16:13[facility] AMPLI 2019-08-06 16:12:[facility] PROC 12 LEAD EKG; TRACING ONLY 2019-05-02 16:09:54 [facility] PROTEIN ELECTROPHORESIS, 24-HOUR URINE 2019-05-02 15:25:00 [facility] BASIC METABOLIC PANEL 2019-05-02 15:15:00 [facility] H. PYLORI STOOL AG 2019-05-02 15:10:00 KuncharapReggie major [facility] Plan of Care Planned Activity Planned Date Details Comments Source Scheduled Test 2022-02-15 00:00:00 Screening for christina gnant neoplasm of cervix (procedure) [code = 843934836] [facility] Scheduled Test 2022-02-15 00:00:00 Screening for christina gnant neoplasm of cervix (procedure) [code = 101115770] [facility] Scheduled Test 2021-03-26 00:00:00 Urine screening fo r protein (procedure) [code = 742412275] [facility] Scheduled Test 2021-03-15 00:00:00 Hemoglobin A1c jalil surement (procedure) [code = 95217571] [facility] Scheduled Test 2020-04-23 00:00:00 DM Retinal Exam (Y early) [code = DM Retinal Exam (Yearly)] [facility] Scheduled Test 2020-02-18 00:00:00 DM Foot Exam (Year ly) [code = DM Foot Exam (Yearly)] [facility] Scheduled Test 2019 00:00:00 Breast Cancer Scrn (Yearly) [code = Breast Cancer Scrn (Yearly)] [facility] Encounters Start Date/Time End Date/Time Encounter Type Admission Type [facility] Care Department Encounter ID Source 2020-02-19 00:00:00 2020-02-19 00:00:00 Outpatient [facility] [id number] [facility] 2019-12-07 00:00:00 2019-12-07 00:00:00 Outpatient [facility] [id number] [facility] 2019-11-26 07:50:55 2019-11-26 07:50:55 Outpatient [facility] [id number] [facility] 2019-10-26 16:40:30 2019-10-26 16:40:30 Outpatient [facility] [id number] [facility] 2019-10-19 00:00:00 2019-10-19 00:00:00 Outpatient [facility] [id number] [facility] 2019-09-06 00:00:00 2019-09-06 00:00:00 Outpatient [facility] [id number] [facility] 2019-08-29 00:00:00 2019-08-29 00:00:00 Outpatient [facility] [id number] [facility] 2019-08-13 00:00:00 2019-08-13 00:00:00 Outpatient [facility] [id number] [facility] 2019-08-13 00:00:00 2019-08-13 00:00:00 Outpatient [facility] [id number] [facility] 2019-08-06 14:36:29 2019-08-06 14:36:29 Outpatient [facility] [id number] [facility] 2019-08-06 00:00:00 2019-08-06 00:00:00 Outpatient [facility] [id number] [facility] 2019-07-27 00:00:00 2019-07-27 00:00:00 Outpatient [facility] [id number] [facility] 2019-07-10 00:00:00 2019-07-10 00:00:00 Outpatient [facility] [id number] [facility] 2019-06-27 00:00:00 2019-06-27 00:00:00 Outpatient [facility] [id number] [facility] 2019-06-27 00:00:00 2019-06-27 00:00:00 Outpatient [facility] [id number] [facility] 2019-06-25 00:00:00 2019-06-25 00:00:00 Outpatient [facility] [id number] [facility] 2019-06-22 00:00:00 2019-06-22 00:00:00 Outpatient [facility] [id number] [facility] 2019-06-21 00:00:00 2019-06-21 00:00:00 Outpatient [facility] [id number] [facility] 2019-06-19 00:00:00 2019-06-19 00:00:00 Outpatient [facility] [id number] [facility] 2019-05-21 14:33:05 2019-05-21 14:33:05 Outpatient [facility] [id number] [facility] 2019-05-21 00:00:00 2019-05-21 00:00:00 Outpatient [facility] [id number] [facility] 2019-05-17 00:00:00 2019-05-17 00:00:00 Outpatient [facility] [id number] [facility] 2019-05-04 00:00:00 2019-05-04 00:00:00 Outpatient [facility] [id number] [facility] 2019-05-02 16:03:33 2019-05-02 16:03:33 Outpatient [facility] [id number] [facility] 2019-05-02 15:16:21 2019-05-02 15:16:21 Outpatient [facility] [id number] [facility] 2019-05-02 15:14:38 2019-05-02 15:14:38 Outpatient [facility] [id number] [facility] 2019-05-02 00:00:00 2019-05-02 00:00:00 Outpatient [facility] [id number] [facility] 2019-04-25 10:31:21 2019-04-25 10:31:21 Outpatient [facility] [id number] [facility] 2019-04-25 09:41:06 2019-04-25 09:41:06 Outpatient [facility] [id number] [facility] 2019-04-23 09:30:23 2019-04-23 09:30:23 Outpatient [facility] [id number] [facility] 2019-04-23 09:24:48 2019-04-23 09:24:48 Outpatient [facility] [id number] [facility] 2019-04-23 00:00:00 2019-04-23 00:00:00 Outpatient [facility] [id number] [facility] 2019-04-18 00:00:00 2019-04-18 00:00:00 Outpatient [facility] [id number] [facility] 2019-04-18 00:00:00 2019-04-18 00:00:00 Outpatient [facility] [id number] [facility] 2019-04-17 16:03:14 2019-04-17 16:03:14 Outpatient [facility] [id number] [facility] 2019-03-16 00:00:00 2019-03-16 00:00:00 Outpatient [facility] [id number] [facility] 2019-03-16 00:00:00 2019-03-16 00:00:00 Outpatient [facility] [id number] [facility] 2019-03-09 00:00:00 2019-03-09 00:00:00 Outpatient [facility] [id number] [facility] 2019-03-09 00:00:00 2019-03-09 00:00:00 Outpatient [facility] [id number] [facility] 2019-02-17 10:27:06 2019-02-17 10:27:06 Outpatient [facility] [id number] [facility] 2018-12-22 08:18:39 2018-12-22 08:18:39 Outpatient [facility] [id number] [facility] 2018-12-15 13:36:10 2018-12-15 13:36:10 Outpatient [facility] [id number] [facility] 2018-12-15 12:44:47 2018-12-15 12:44:47 Outpatient [facility] [id number] [facility] 2018-12-08 00:00:00 2018-12-08 00:00:00 Outpatient [facility] [id number] [facility] 2018-11-23 08:59:11 2018-11-23 08:59:11 Outpatient [facility] [id number] [facility] 2018-11-08 00:00:00 2018-11-08 00:00:00 Outpatient [facility] [id number] [facility] 2018-11-02 10:49:00 2018-11-02 10:49:00 Emergency [facility] [id number] [facility] 2018-11-02 00:00:00 2018-11-02 00:00:00 Outpatient [facility] [id number] [facility] 2018-11-02 00:00:00 2018-11-02 00:00:00 Emergency [facility] [id number] [facility] 2018-10-13 00:00:00 2018-10-13 00:00:00 Outpatient [facility] [id number] [facility] 2018-10-12 00:00:00 2018-10-12 00:00:00 Outpatient [facility] [id number] [facility] 2018-09-29 15:55:04 2018-09-29 15:55:04 Outpatient [facility] [id number] [facility] 2018-09-29 13:37:23 2018-09-29 13:37:23 Outpatient [facility] [id number] [facility] 2018-09-15 13:30:19 2018-09-15 13:30:19 Outpatient [facility] [id number] [facility] 2018-09-14 21:13:02 2018-09-14 21:13:02 Emergency [facility] [id number] [facility] 2018-09-12 01:59:57 2018-09-12 01:59:57 Emergency [facility] [id number] [facility] 2018-09-12 01:30:30 2018-09-12 01:30:30 Emergency [facility] [id number] [facility] 2018-09-01 13:48:55 2018-09-01 13:48:55 Outpatient [facility] [id number] [facility] 2018-03-13 00:00:00 2018-03-13 00:00:00 Outpatient [facility] [id number] [facility] 2018-02-20 09:43:31 2018-02-20 09:43:31 Outpatient [facility] [id number] [facility] 2018-02-17 00:00:00 2018-02-17 00:00:00 Outpatient [facility] [id number] [facility] 2018-02-10 00:00:00 2018-02-10 00:00:00 Outpatient [facility] [id number] [facility] 2018-02-09 16:50:55 2018-02-09 16:50:55 Outpatient [facility] [id number] [facility] 2018-02-09 15:38:52 2018-02-09 15:38:52 Outpatient [facility] [id number] [facility] 2018-01-10 21:54:31 2018-01-10 21:54:31 Emergency [facility] [id number] [facility] 2018-01-10 19:24:11 2018-01-10 19:24:11 Emergency [facility] [id number] [facility] 2017-12-13 00:00:00 2017-12-13 00:00:00 Outpatient [facility] [id number] [facility] 2017-09-30 15:22:54 2017-09-30 15:22:54 Outpatient [facility] [id number] [facility] 2017-06-23 00:00:00 2017-06-23 00:00:00 Outpatient [facility] [id number] [facility] 2017-05-19 12:49:23 2017-05-19 12:49:23 Outpatient [facility] [id number] [facility] 2017-05-11 00:00:00 2017-05-11 00:00:00 Outpatient [facility] [id number] [facility] 2017-05-02 12:55:58 2017-05-02 12:55:58 Outpatient [facility] [id number] [facility] 2017-04-01 14:22:33 2017-04-01 14:22:33 Outpatient [facility] [id number] [facility] 2017-02-21 00:00:00 2017-02-21 00:00:00 Outpatient [facility] [id number] [facility] 2017-02-15 15:04:22 2017-02-15 15:04:22 Outpatient [facility] [id number] [facility] 2017-02-03 01:15:57 2017-02-03 01:15:57 Emergency [facility] [id number] [facility] 2017-02-02 22:39:45 2017-02-02 22:39:45 Emergency [facility] [id number] [facility] 2017-02-02 18:51:30 2017-02-02 18:51:30 Outpatient [facility] [id number] [facility] 2017-02-01 00:00:00 2017-02-01 00:00:00 Outpatient [facility] [id number] [facility] 2017-01-04 12:00:05 2017-01-04 12:00:05 Outpatient [facility] [id number] [facility] 2017-01-04 10:09:53 2017-01-04 10:09:53 Outpatient [facility] [id number] [facility] 2016-12-28 00:00:00 2016-12-28 00:00:00 Outpatient [facility] [id number] [facility] Results Test Description Test Time Test Comments Results Result Comments Source Comprehensive Metabolic Panel 2020-04-28 22:00:00 Test Item Sodium (test code = 2951-2) 140 mmol/L 136-145 Potassium (test code = 2823-3) 3.8 mmol/L 3.5-5.1 Chloride (test code = 2075-0) 106 mmol/L 98-107 CO2 (test code = 18831618) 25 mmol/L 21-31 Glucose (test code = 01592594) 69 mg/dL 70-110 L Calcium (test code = 67479294) 8.1 mg/dL 8.6-10.3 L Urea Nitrogen (test code = 91314559) 42.0 mg/dL 7-25 H Creatinine (test code = 79473747) 2.7 mg/dL 0.6-1.2 H Alkaline Phosphatase (test code = 30483278) 51 U/L 34-104 ALT (test code = 07535983) 15 U/L 7-52 AST (test code = 06784391) 12 U/L 13-39 L Total Protein (test code = 2885-2) 5.7 g/dL 6-8.3 L eGFR If Africn Am (test code = 71187523) 24 >=90 mL/min/1 .73 m2 L Albumin (test code = 21998-7) 2.8 g/dL 3.7-5.3 L Anion Gap (test code = 24912849) 9 mmol/L 5-16 Lab Interpretation (test code = 32093-2) Abnormal [id number] 20:46:00* Test Item Value Reference Range Interpretation Comments WBC (test code = 6690-2) 7.0 K/uL 4.5-11 RBC (test code = 789-8) 3.70 4.20- 5.40 M/uL L Hemoglobin (test code = 718-7) 8.6 g/dL 12-16 L Hematocrit (test code = 4544-3) 28.4 % 37-47 L MCV (test code = 787-2) 76.8 fL 82-92 L MCH (test code = 785-6) 23.2 pg 27-32 L MCHC (test code = 786-4) 30.3 g/dL 32-36 L RDW (test code = 55636-2) 55.5 fL 36.4-46.3 H Platelet (test code = 777-3) 401 K/uL 150-400 H Mean Platelet Volume (test code = 13283-0) 9.8 fL 9.4-12.4 Percent NRBC (test code = 98196132) 0.0 % Neutrophil (test code = 770-8) 61.4 % 34-70 Lymphs (test code = 736-9) 29.9 % 20-50 Monocytes (test code = 5905-5) 6.0 % 5-12 Eos (test code = 713-8) 2.0 % 0.7-5 Basos (test code = 706-2) 0.6 % 0.1-1.2 Immature Granulocytes (test code = 80548194) 0.1 % 0-0.5 Neutrophils (Absolute) (test code = 02149321) 4.28 K/uL 1.56-6.1 3 Lymphs (Absolute) (test code = 81694598) 2.09 K/uL 1.18-3.74 Monocytes(Absolute) (test code = 06981190) 0.42 K/uL 0.24-0.36 H Eos (Absolute) (test code = 96964103) 0.14 K/uL 0.04-0.36 Baso (Absolute) (test code = 36290857) 0.04 K/uL 0.01-0.08 Immature Grans (Abs) (test code = 33689944) 0.01 K/uL 0-0.03 Absolute NRBC (test code = 15797563) 0.00 K/uL Lab Interpretation (test code = 08674-9) Abnormal [facility] GLUCOSE POC docked [id number] 15:40:00* Test Item Value Reference Range Interpretation Comments Glucose POC (test code = 17412715) 140 mg/dL 74-106 H Lab Interpretation (test code = 14608-6) [facility] [id number] 06:56:00* Test Item Value Reference Range Interpretation Comments Sodium (test code = 2951-2) 137 mmol/L 136-145 Potassium (test code = 2823-3) 3.9 mmol/L 3.5-5.1 Chloride (test code = 2075-0) 106 mmol/L 98-107 CO2 (test code = 34425138) 22 mmol/L 21-31 Urea Nitrogen (test code = 79617366) 31.0 mg/dL 7-25 H Creatinine (test code = 84029584) 3.0 mg/dL 0.6-1.2 H Glucose (test code = 64706140) 96 mg/dL 70-110 Calcium (test code = 11610855) 8.0 mg/dL 8.6-10.3 L eGFR If Africn Am (test code = 12905229) 21 >=90 mL/min/1 .73 m2 L Anion Gap (test code = 37534648) 9 mmol/L 5-16 Lab Interpretation (test code = 02325-6) Abnormal [facility] [id number] 06:09:00* Test Item Value Reference Range Interpretation Comments TIBC (test code = 2500-7) 274 ug/dL 250-450 UIBC (test code = 2501-5) 247 ug/dL 131-425 Iron (test code = 2498-4) 27 ug/dL 27-159 % Iron Sat (test code = 2502-3) 10 % 15-55 L Result unreliable: Result below instrument usable range. JULIANA (test code = JULIANA) Performed at: [address] [place] [address] [id number] Director: Jose Daniel Lizarraga MD, Phone: [phone] Lab Interpretation (test code = 45797-4) Abnormal [facility]12 LEAD [id number] 15:19:3012 LEAD EKG FOR CHP Doron Brambila [facility] Test Date: 6026-26-56Pyh Name: YVONNE THOMAS Department: 6520Patient ID: [id number] Room: Gender: F 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: Kimberly rnDOB: 1980 Requested By: OMAR Michelle Number: [id number] Reading MD: Freeman BERMEO MeasurementsIntervals [place] Rate: 92 P: 46PR: 163 QRS: 41QRSD: 80 T: 188QT: 383 QTc: 475 Interpretive StatementsSINUS RHYTHMBorderline prolonged QTcMODERATE T-WAVE ABNORMALITY, CONSIDER ISCHEMIAAbnormal ECGElectronically Signed On 03-17-2020 15:19:27 CDT by Freeman BERMEOTr[facility] CampusMYOCARDIAL PERFUSION SPECT REST/STRES MULTIPLE 2020-03-17 15:06:00MYOCARDIAL PERFUSION SPECT REST/STRES MULTIPLE Myocardial Perfusion Report YVONNE THOMAS Age: 39 Gender: F : 1980 Exam Date: 03/17/2020 09:34 Exam Location: [facility] Nuc Ordering Phys: OMAR LANCE Referring Phys: Reading Phys: Clif Barrett MD Fellow Phys: Fellow Phys: Resident: Technologist: Saturnino Fuentes Reason For Exam: Indications: Chest pain, unspecified ICD-9 Codes: R07.9 Exam Type: MYOCARDIAL PERFUSION SPECT REST/STRES MULTIPLE Procedure CPT: 34217 Additional CPT: BP: / HR: Risk Factors: Previous Cardiac Procedures: Cardiac History: Pertinent Meds: Meds past 24 hrs: Pretest Chest Pain: CARDIOLOGY STRESS TEST Pharmacologi Cardiology exercise stress test results pending under separate report. Please look in [facility] under the Procedures Tab in Chart [...] Reduced left ventricular ejection fraction of 46%. [place] Control: Do not remove! Clif Barrett MD (Electronically Signed) Final Date: 17 March 2020 15:00 Amended: 17 March 2020 15:05 [facility] CampusTREADMILL STRESS-TRACING [id number] 14:21:04 Stress Test [facility] Test Date: 724-45-22Quh Name: YVONNE THOMAS Department: [id number] ID: [id number] Room: Gender: [facility]ly [facility] chnician: Kathy Pavon [facility] YOUSIFOB: 1980 Requested By: FREEMAN BERMEO WOrder Number: [id number] Reading MD: Freeman BERMEO Interpretive StatementsThe patient was tested using LEXISCAN STRESS TEST for a duration of 01:00. Amaximum heart rate of 126 was obtained at 04:10 with a maximum systolic bloodpressure of 160/91 at 08:10 and a maximum diastolic blood pressure of 156/92obtained at 07:10. The res ting ECG demonstrated a possible prior ASMI.The resting ECG demonstrated non-spe cific ST-T abnormalities.The stress ECG did not change diagnostically from the p re-test study.Motion artifact obscures several of the ECG tracings.Rare VPBs are noted during the study.CONCLUSION:Abnormal resting ECG.Negative electrocardiogr aphic Lexiscan test by strict ST segment criteria.Nuclear scan results pending u nder separate report per radiology department.Correlation with those images is a dvised. 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: JahB: 1980 Requested By: OMAR Michelle Number: [id number] Reading MD: Freeman BERMEO MeasurementsIntervals [place] Rate: 92 P: 93PR: 160 QRS: 28QRSD: 76 T: 141QT: 309 QTc: 267 Interpretive StatementsSINUS RHYTHMNon-specific ST-T changesBaseline artifact may adversely affect interpretation - please repeat ECGAbnormal ECGElectronically Signed On 03-17-2020 10:48:57 CDT by [facility]esium2020-10-18 07:15:00* Test Item Value Reference Range Interpretation Comments Magnesium (test code = 82483924) 1.9 mg/dL 1.9-2.7 Lab Interpretation (test code = 33115-2) Normal [facility] HospitalGetxekWbvdtlgfgu1530-90-66 07:15:00* Test Item Value Reference Range Interpretation Comments Phosphorus (test code = 2777-1) 4.6 mg/dL 2.5-5 Lab Interpretation (test code = 67594-1) Normal [place] [address] LEAD [id number] 17:25:0912 LEAD EKG FOR P Doron Brambila [facility] Test Date: 6949-47-84Ecz Name: YVONNE THOMAS Department: E1IQMywjjok ID: [id number] Room: 3X63Sbfrij: F 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: : 1980 Requested By: OMAR Michelle Number: [id number] Reading MD: Freeman BERMEO MeasurementsIntervals [place] Rate: 113 P: 36PR: 124 QRS: 45QRSD: 88 T: 24QT: 308 QTc: 423 Interpretive StatementsSINUS TACHYCARDIAABNORMAL RHYTHM ECGElectronically Signed On 03-15-2020 17:25:07 CDT by [facility] (TTE)2020-03-15 16:01:00 TRANSTHORACIC ECHO (TTE) Transthoracic Echo Report YVONNE THOMAS Age: 39 Gender: F : 1980 Exam Date: 03/15/2020 06:58 Exam Location: [facility] Echo Ordering Phys: OMAR LANCE Referring Phys: [id number], NATALIO Reading Phys: Jazz Bey Fellow Phys: Fellow Phys: Logistics System Engineer: Lidia germain Reason For Exam: Indications: chest pain, heart failure ICD-9 Codes: Exam Type: TRANSTHORACIC ECHO (TTE) Procedure CPT: 02310 Addtional CPT: Ht (in): 62 BSA: 1.91 HR: 78 Rhythm: Sinus rhythm Wt (lb): 177 BP: 146 / 78 Technical Quality: Adequate History: MEASUREMENTS Normal ranges based on 95% confidence intervals for adults, some normal patients may fall outside of this range especi ally when indexing for BSA 2D ECHO LV Diastolic Diameter PLAX 4.4 cm 4.2-5.8 (M) / 3.8-5.2 (F) LV Systolic Diameter PLAX 2.9 cm 2.5-4.0 (M) / 2.2-3.5 (F) LV Fractional Shortening PLAX 34.4 % IVS Diastolic Thickness 1.7 cm 0.6-1.0 (M) / 0.6-0.9 (F) IVS Systolic Thickness 2.3 cm LVPW Diastolic Thickness 1.8 cm 0.6-1.0 (M) / 0.6-0 .9 (F) LVPW Systolic Thickness 1.9 cm LV Relative Wa ll Thickness 0.79 <= 0.42 LVOT Diameter 2 [...] cm/min LV Cardiac Index MOD BP 2160 cm/minm2 LA Volume 91 cm LA Volume Index 47.7 cm/m2 16 - 34 cm/m2 LV Mass by linear method 325 g LV Mass by linear method Index 170 g/m2 DOPPLER AV Peak Velocity 191 cm/s AV [...] cm AV Area Cont Eq vti 2.5 cm2 AV Area Cont Eq pk 2.3 cm2 MV Peak Velocity 148 cm/s MV Peak Gradient 8.8 mmHg MV Mean Velocity 95.7 cm/s MV Mean Gradient 4 mmHg MV Velocity Time Integral 29.3 cm MV Area Cont Eq vti 2.6 cm2 Mitral E Point Velocity 142 cm/s Mitral A Point Velocity 114 cm/s Mitral E to A Ratio 1.2 MV Deceleration [place] 615 cm/s2 MV Pressure Half Time 71 ms MV Area PHT 3.1 cm2 MV Deceleration Time 236 ms MR Peak [...] no aortic stenosis. There is no aortic regurgit ation. Tricuspid Valve Structurally normal tricuspid valve without significan t stenosis. There is trace tricuspid regurgitation. Insufficient TR jet to es timate pulmonary artery systolic pressure. Pulmonic Valve Structurally norm al pulmonic valve without significant stenosis. There is trace pulmonic regurg itation. Pericardium Moderate circumferential pericardial effusion is present measuring 1.2 cm. No echocardiographic findings to suggest a hemodynamically significant pericardial effusion. Aorta Normal aortic root for body surface area. IVC The inferior vena cava is normal in size. Greater than 50% respir atory change in dimension. CONCLUSIONS The left ventricle is normal in size . There is severe concentric hypertrophy noted, with normal systolic function and an estimated ejection fraction of 60- 65%. There is impaired LV relaxation with elevated filling pressures (Grade II). Global strain measured at -25.1 ms , with apical sparing noted. The right ventricle is normal in size and systoli c function. Left atrium is severely enlarged. No significant valvular abnorma lities are seen. Insufficient TR jet to estimate pulmonary artery systolic pres sure. Mild to moderate sized circumferential pericardial effusion is present measuring 1.2 cm without echocardiographic findings to suggest a hemodynamica lly significant pericardial effusion. Compared to prior TTE from 2019, severe l eft ventricular hypertrophy is noted, with worsening diastolic function and a new pericardial effusion is seen. Consider infiltrative disease such as cardi ac amyloidosis. Jazz Bey (Electronically Signed) Final Date: 2019 16:00 2D ECHO LV Diastolic Diameter PLAX 4.4 cm 4.2-5.8 (M) / 3.8-5.2 (F) LV Systolic Diameter PLAX 2.9 cm 2.5-4.0 (M) / 2.2-3.5 (F) LV Fractional Shortening PLAX 34.4 % IVS Diastolic Thickness 1.7 cm 0.6-1.0 (M) / 0.6-0.9 (F) IVS Systolic Thickness 2.3 cm LVPW Diastolic Thickness 1.8 cm 0.6-1.0 (M) / 0.6-0.9 (F) LVPW Systolic Thickness 1.9 cm LV Rela tive Wall Thickness 0.79 <= 0.42 LVOT Diameter [...] cm/min LV Cardiac Index MOD BP 2160 cm/minm2 LA Volume 91 cm LA Volume Index 47.7 cm/m2 16 - 34 cm/m2 LV Mass by linear method 325 g LV Mass by linear method Index 170 g/m2 DOPPLER AV Peak Velocity 191 cm/s AV [...] cm AV Area Cont Eq vti 2.5 cm2 AV Area Cont Eq pk 2.3 cm2 MV Peak Velocity 148 cm/s MV Peak Gradient 8.8 mmHg MV Mean Velocity 95.7 cm/s MV Mean Gradient 4 mmHg MV Velocity Time Integral 29.3 cm MV Area Cont Eq vti 2.6 cm2 Mitral E Point Velocity 142 cm/s Mitral A Point Velocity 114 cm/s Mitral E to A Ratio 1.2 MV Deceleration [place] 615 cm/s2 MV Pressure Half Time 71 ms MV Area PHT 3.1 cm2 MV Deceleration Time 236 ms MR Peak [...] RV S' Velocity 13.5 cm/s >9.5 cm/s SMSHarris Health1 Fvwgu1604-08-41 14:30:00* Test Item Value Reference Range Interpretation Comments RBC UNITS (test code = 51623687) compatible Unit ABO Type (test code = 47415073) O Unit Rh Type (test code = 29162856) POS Product Code (test code = 10133834) E4543 Unit Number (test code = 85497890) [id number] Unit Status (test code = 55520771) transfused ISBT Product Code (test code = 54747) [id number] Blood Type (test code = 64013) 5100 Blood Expiration Date (test code = 49775) [id number] [place] [address] LEAD [id number] 11:47:3812 LEAD EKG FOR [facility] Test Date: 4323-03-32Wvr Name: YVONNE THOMAS Department: 6520Patient ID: [id number] Room: 1Q05Vnlabd: F 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: [id number]: 1980 Requested By: BRIGITTE Michelle Number: [id number] Reading MD: Freeman BERMEO MeasurementsIntervals [place] Rate: 94 P: 67PR: 175 QRS: 92QRSD: 80 T: 49QT: 383 QTc: 481 Interpretive StatementsSINUS RHYTHMBORDERLINE RIGHT AXIS DEVIATIONNONSPECIFIC T-WAVE ABNORMALITYAbnormal ECGElectronically Signed On 03-15-2020 11:47:36 CDT by Freeman BERMEOTr[facility] CampusFqtstfZiwoczkn6742-19-13 11:08:00* Test Item Value Reference Range Interpretation Comments Ferritin (test code = 73670082) <10.0 11-306.8 L Lab Interpretation (test code = 68585-4) Abnormal [facility] HospitalT&S Latdglyodk3409-87-79 11:01:00* Test Item Value Reference Range Interpretation Comments Specimen Expiration (test code = 03348044) 03/18/2020 23:59 ABO/RH (test code = 44040576) O POS Antibody Screen (test code = 64768760) NEG [facility] HospitalTroponin [id number] 10:50:00* Test Item Value Reference Range Interpretation Comments Troponin I (test code = 07541769) 0.06 ng/mL <0.04 H Lab Interpretation (test code = 13007-5) Abnormal [facility] HospitalHemoglobin [id number] 10:24:00* Test Item Value Reference Range Interpretation Comments Hemoglobin A1c (test code = 4548-4) 6.6 % 4.3-6.1 H Estimated Average Glucose (test code = 52242026) 143 mg/dL 70-11 0 H Lab Interpretation (test code = 79897-7) Abnormal [facility] HospitalCalcium, Jqkavtb5628-81-69 05:25:00* Test Item Value Reference Range Interpretation Comments Calcium, Ionized (test code = 50893123) 1.18 mmol/L 1.15-1.29 Lab Interpretation (test code = 49507-1) Normal [facility] HospitalTotal Protein/Creatinine Ratio, Sppku0918-28-45 22:44:00* Test Item Value Reference Range Interpretation Comments Creatinine, Urine (test code = 92539826) 19 mg/dL 20-320 L Total Protein, Urine (test code = 40142997) 1.99 g/L <0.19 H Total Protein/Creatinine Ratio, Urine (test code = 10814071) 10.5 % 0- 0.5 % H Lab Interpretation (test code = 82642-7) Abnormal [facility] HospitalUrine Drug Swbsoo9841-97-48 22:44:00* Test Item Value Reference Range Interpretation Comments pH, Ur (test code = 67536778) 7.0 Opiate, Ur (test code = 70058-4) Negative Negative Calibrated Standard: Morphine Positive if urine level > or = 300 ng/dL Amphetamine (test code = 06767-4) Negative Negative Calibrated Standard: D- Methamphetamine Positive if urine level > or = 1000 ng/mL Barbiturate (test code = 11998-1) Negative Negative Calibrated Standard: Secobarbital Positive if urine level is > or = 200 ng/mL Benzodiazepine (test code = 37578-0) Negative Negative Calibrated Standard: Lormethazepam Positive if urine level is > or = 200 ng/mL Cocaine (test code = 14581-7) Negative Negative Calibrated Standard: Benzoylecgonine Positive if urine level > or = 300 ng/dL PCP (test code = 34028-3) Negative Negative Ca librated Standard: Phencyclidine Positive if urine level > or = 25 ng/dL Cannabinoid (test code = 31366-6) Negative Negative Calibrated Standard: 11 nor-delta(9)-THC carboxylic acid Positive if urine level > or = 50 ng/mL Lab Interpretation (test code = 94020-9) Normal [facility] HospitalLipid Zyuntct8387-66-63 22:33:00* Test Item Value Reference Range Interpretation Comments Cholesterol (test code = 2093-3) 211.0 mg/dL <=200.0 H Desirable: < 200.0 mg/dLBorderline: 200 - 240 mg/dLHigh Risk: > 240 mg/dL Triglyceride (test code = 12356799) 71 mg/dL <150 Normal: < 150.0 mg/dL Borderline: 150-199 mg/dL High: 200-499 mg/dL Very High: >= 500 mg/dL HDL (test code = 2085-9) 49.0 mg/dL See Reference Range Narrative . Increased CHD Risk: < 40.0 mg/dL Decreased CHD Risk: > 60 mg/dL LDL (test code = 01758-9) 148 mg/dL <100 H Op timal: < 100.0 mg/dLNear Optimal: 120-129 mg/dLBorderline: 130-159 mg/dLHigh: 160-189 mg/dLVery High: >=190 mg/dL Patient Fasting? (test code = 30444117) Lab Interpretation (test code = 37845-6) Abnormal [facility] HospitalTSH [Thyroid Stimulating Hormone]2020-03-14 22:16:00* Test Item Value Reference Range Interpretation Comments TSH (test code = 79795031) 3.00 0.45- 5.33 uIU/mL If , please see the following reference ranges (not verified by lab): 1st Trimester: 0.05 -3.70 uIU/mL2nd Trimester: 0.31 -4.35 uIU/mL3rd Trimester: 0.41 - 5.18 uIU/mL Lab Interpretation (test code = 32383-3) Normal [facility] HospitalFree [id number] 21:33:00* Test Item Value Reference Range Interpretation Comments Free T4 (test code = 82634220) 1.18 ng/dl 0.64-1.42 Lab Interpretation (test code = 56467-2) Normal [facility] HospitalCoronavirus, CoVID-19, (ANJALI)2020-03-14 20:14:00* Test Item Value Reference Range Interpretation Comments CoVID-19 (SARS-CoV-2) (test code = 96733-5) Not Detected Not Detect ed The 2019 novel coronavirus (SARS-CoV-2) target nucleic acids are not detected. JULIANA (test code = JULIANA) RAPID Lab Interpretation (test code = 89549-8) Normal [facility]12 LEAD [id number] 18:30:4512 LEAD EKG [facility] Test Date: 6517-12-43Hkz Name: YVONNE THOMAS Department: 6520Patient ID: [id number] Room: Gender: F 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: [id number]: 1980 Requested By: MARTHA AQUINO Order Number: [id number] Reading MD: Freeman BERMEO MeasurementsIntervals [place] Rate: 0 P: SC: 0 QRS: QRSD: 0 T: QT: 0 QTc: 0 Interpretive StatementsTechnically Poor Tracing affects interpretationSINUS RHYTHMNon-specific ST-T changesNO FURTHER INTERPRETATION POSSIBLEATYPICAL ECGElectronically Signed On 03-14-2020 18:30:42 CDT by Freeman BERMEOF[facility] CHEST PE CYYNKJAP3910-83-91 16:24:10 IMPRESSION: 1. No pulmonary embolus is identified to the segmental level. [address] evidence for right heart strain is absent.3. Cardiomegaly with evidence o f fluid overload including bilateralpleural fluid, pericardial fluid, pulmonary edema and body wall edema.This picture is concerning for congestive heart failur e.4. Scattered peripheral ground glass opacities with mild centralperibronchial cuffing and thickening of the left oblique fissure aresuggestive of pulmonary e an. Infectious process could be considered inthe appropriate clinical setting. 5. Small hiatal hernia This [facility] radiology report is a preliminary resident dic tation untilfinalized by an attending. Changes to this preliminary report may o ccurin an additional preliminary or finalized version. Dictated By: Martha jane MD, 03/14/2020 4:12 PM I have reviewed the study and agree with the findings i n this report. Signed By: Shawanda Esqueda MD, 03/14/2020 4:24 PM Interface, Rad/M ammog In - 03/14/2020 4:29 PM CDTEXAM: CTA CHEST WITH CONTRASTDATE: 03/14/2020 3:26 PM INDICATION: PE suspected, low pretest prob. Chest pain, unspecified type ADDITIONAL INFORMATION: None.COMPARISON: NoneTECHNIQUE: Volumetric CT of the [place] st is acquired during pulmonaryarterial phase following intravenous administrati on of contrast. Axial,sagittal, coronal, and oblique MIP reconstructions are cre ated at theacquisition workstation. IV contrast: 40 mL of Omnipaque 350DLP (m Gy-cm): 520 FINDINGS: Occupational Health And Safety Adviser: Noncontributory.Lines and tubes: None.Lower neck : Unremarkable.Axilla: Clear.Airway: Clear.Lungs and pleura: There are scattere d peripheral ground glass opacitiesthroughout the right lung and in the left low er lobe. Mild septalthickening is noted. There is mild central peribronchial cuf fing seenbilaterally. There is dependent bilateral subsegmental atelectasis inth e lower lobes. There is mild thickening of the left oblique fissure.Bilateral sm all amount of simple fluid is noted in the pleura. There isno pneumothorax.Media stinum, john and intrathoracic lymph nodes: Normal.Heart, pericardium and great vessels: Pulmonary emboli: No pulmonary embolus is identified to the segmentalle tasha. Pulmonary trunk: 2.8 cm, normal.Ascending aorta: 2.9 cm, normal.Heart: T here is cardiomegaly with cardiothoracic index at 0.64. There ishypertrophy of t he left ventricle. No right heart strain. RV:LV ratio isless than 1 (Normal < 1)Pericardium: There is a small amount of pericardial fluidUpper abdomen: There is a small hiatal hernia. Bones: No acute abnormality.Soft tissues: There is a 8 mm lesion in the right breast as seen onseries 2, image 80 which is nonspecific. Please correlate with mammogramif clinically indicated.IMPRESSIONIMPRESSION: 1. No pulmonary embolus is identified to the segmental level. 2. CT evidence for right heart strain is absent.3. Cardiomegaly with evidence of fluid overl oad including bilateralpleural fluid, pericardial fluid, pulmonary edema and bod y wall edema.This picture is concerning for congestive heart failure.4. Scatter ed peripheral ground glass opacities with mild centralperibronchial cuffing and thickening of the left oblique fissure aresuggestive of pulmonary edema. Infecti ous process could be considered inthe appropriate clinical setting.5. Small hia alvin herniaThis EPIC radiology report is a preliminary resident dictation untilfi nalized by an attending. Changes to this preliminary report may occurin an bryce tional preliminary or finalized version.Dictated By: Martha Perez MD, 0 4:12 PMI have reviewed the study and agree with the findings in this report.Si gned By: Shawanda Esqueda MD, 03/14/2020 4:24 PMHar[facility] HealthXRAY CHEST 1 VIEW 2020-03-14 15:30:43IMPRESSION:* Cardiomegaly.* No acute pleuropulmonary abnormality. Signed By: Shawanda Esqueda MD, 03/14/2020 3:30 PM Interface, Rad/Mammog In - 03/14/2020 3:35 PM CDTXRAY CHEST 1 VIEWDATE: 03/14/2020 1:55 PMCLINICAL INDICATION: CP COMPARISON: Chest x-ray performed 09/12/2018TECHNIQUE: A single AP view of the chest is obtained using portabletechnique, semierect, and submitted for interpretation. DISCUSSION: The lungs appear clear. Costophrenic angles are sharp. No pleural effusion is demonstrated. No pneumothorax in the position of the study.The cardiac size remains enlarged. The bones demonstrate no destructive or traumatic lesion.IMPRESSIONIMPRESSION:* Cardiomegaly.* No acute pleuropulmonary abnormality.Signed By: Shawanda Esqueda MD, 03/14/2020 3:30 PMEvansville HealthBNP [B-Type Natriuretic Peptide]2020-03-14 13:50:00* Test Item Value Reference Range Interpretation Comments B Natriuretic Peptide (BNP) (test code = 21266165) 432 pg/mL <=1 00 H Lab Interpretation (test code = 94318-1) Abnormal [place] HbufulAmfcntnoub0407-07-87 13:41:00* Test Item Value Reference Range Interpretation Comments Color (test code = 41691390) Straw Colorless, Straw, Yellow Clarity (test code = 77436746) Clear Clear Spec [place], Ur (test code = 54817216) 1.010 1.001-1.035 pH, Ur (test code = 04458816) 7.0 5.0-8.0 Protein, Ur (test code = 00437821) 3+ Negative mg/dL A Glucose, Ur (test code = 56378361) Negative Negative mg/dL Ketone, Ur (test code = 10986995) Negative Negative mg/dL Bilirubin, Ur (test code = 73336370) Negative Negative mg/dL Nitrite, Ur (test code = 52466543) Negative Negative Leukocyte (test code = 21492612) 1+ Negative mg/dL A Blood, Ur (test code = 95015298) 1+ Negative mg/dL A RBC (test code = 96516553) 10 0- 4 /HPF H WBC (test code = 43260471) 7 0- 5 /HPF H Epithelial Cell (test code = 48571458) 5 <=1 /HPF H Hyaline Cast (test code = 15864287) 5 0- 2 /LPF H Urobilinogen, Ur (test code = 71353611) <1.0 <1.0 EU/dL Lab Interpretation (test code = 12391-5) Abnormal [facility] HospitalTwzxiyX-Zxrje5577-15-16 13:40:00* Test Item Value Reference Range Interpretation Comments D-Dimer (test code = 78132363) 1.93 0.27- 0.48 ug/mL FEU H Values of quantitative D-Dimer less than 0.40 ug/mL FEU have been reported to be associated with a low probability of deep vein thrombosis/pulmonary embolism. This test alone should not be used to rule out DVT/PE. Lab Interpretation (test code = 20808-4) Abnormal [facility] Urine - Tnxdxufzo1891-96-30 13:16:00* Test Item Value Reference Range Interpretation Comments Control (test code = 7172) pass (test code = 7173) negative Lab Interpretation (test code = 52329-0) Normal [facility]12 LEAD [id number] 12:01:5312 LEAD EKG FOR CHP [facility] Test Date: 7675-74-65Emy Name: YVONNE THOMAS Department: 6520Patient ID: [id number] Room: Gender: F 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: : 1980 Requested By: GRACIELA CHAVEZ Order Number: [id number] Reading MD: Freeman BERMEO MeasurementsIntervals [place] Rate: 97 P: 51PR: 146 QRS: 53QRSD: 86 T: 63QT: 366 QTc: 465 Interpretive StatementsSINUS RHYTHMPoor anterior R wave progressionNONSPECIFIC T-WAVE ABNORMALITYAbnormal ECGElectronically Signed On 03-14-2020 12:01:50 CDT by Freeman [facility]/ DNA Koebtvjfrrfiy7765-04-85 13:09:00* Test Item Value Reference Range Interpretation Comments Chlamydia trachomatis (test code = 35366-4) Negative Negative N. gonorrhoeae (test code = 75244-8) Negative Negative JULIANA (test code = JULIANA) This test utilizes goCatch A ptMesitis Combo 2 Assay for target amplification of rRNA for the qualitative detection of Chlamydia trachomatis and Neisseria gonorrhoeae. Lab Interpretation (test code = 29714-4) Normal [facility] [place] with [id number] 16:19:00* Test Item Value Reference Range Interpretation Comments Yeast by [place] (test code = 57629993) Yeast seen A Yeast by HARESH (test code = 99784797) Yeast seen A Clue Cells (test code = 34089957) No Clue cells seen Epithelial Cells (test code = 16811849) Epithelial cells seen WBCs (test code = 13399980) WBCs seen Trichomonas (test code = 23356686) No Trichomonas seen Lab Interpretation (test code = 19436-2) Abnormal [place] [address] LEAD [id number] 16:58:1812 LEAD EKG FOR [facility] Test Date: 9354-33-64Ysr Name: YVONNE HTOMAS Department: 4621Patient ID: [id number] Room: Gender: F 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: [id number]: 1980 Requested By: REGGIE PERKINS Order Number: [id number] Reading MD: Sherine Scott M.D. MeasurementsIntervals [place] Rate: 89 P: 40PR: 162 QRS: 38QRSD: 78 T: 68QT: 390 QTc: 476 Interpretive StatementsSINUS RHYTHMElectronically Signed On 05-02-2019 16:58:15 MANAGER ELIGIBILITY by Sherine Scott M.D.[facility]
--- NOTE | 2020-05-01 11:28 | Diagnostic Imaging Report ---
Chest, 1 view, 05/01/2020. History: Shortness of breath, hypertension. Comparison: None available. Findings: The cardiomediastinal silhouette and pulmonary vasculature are within normal limits for a portable exam. There is no focal consolidation or pleural effusion. There are no acute osseous or soft tissue abnormalities. Impression: No acute cardiopulmonary abnormality. Signed by: Phani Pizarro on 05/01/2020 11:25 AM
--- NOTE | 2020-05-01 12:30 | NUR ---
nitroglycerin gtt infusing at 25 mcg/min. increased to 30 mcg/min
--- NOTE | 2020-05-01 12:48 | NUR ---
nitroglycerin increased to 35 mcg/min
--- NOTE | 2020-05-01 14:51 | NUR ---
patient ambulated to toilet on continuous monitoring and tolerated well.
[2020-05-01] MEDS ORDERED: ACETAMINOPHEN 325 MG TAB PO PRN (15:00)
[2020-05-01] MEDS ORDERED: NICARDIPINE 20MG/200ML PREMIX 200 ML IV PRN (15:30)
--- NOTE | 2020-05-01 15:31 | NUR ---
CHANGED NITROGLYCERIN GTT TO NICARDIPINE AT 15 MG/HR
[2020-05-01] MEDS ORDERED: NICARDIPINE 20MG/200ML PREMIX 200 ML ONE (15:34)
--- NOTE | 2020-05-01 15:49 | NUR ---
LEFT MESSAGE FOR NEW CONSULT DR ANGULO
[2020-05-01] MEDS ORDERED: POTASSIUM CHLORIDE 20 MEQ TAB CR PO ONE (16:15)
--- NOTE | 2020-05-01 17:24 | Consultation ---
DATE OF CONSULTATION: Pulmonary Critical Care Consultation. CHIEF COMPLAINT: Chest pain and accelerated hypertension. HISTORY OF PRESENT ILLNESS: The patient is a 39-year-old woman. She has a history of hypertension. In February of this year, she required hospitalization at [facility] for accelerated hypertension and chest pain. She also found out about chronic renal disease at that time. She was evaluated by Cardiology. She had abnormal nuclear stress test, but could not undergo catheterization because of her elevated creatinine. She now presents to our emergency department with chest discomfort intermittently for the past day and a half. She also had some headache. Upon arrival, she was found to have accelerated hypertension. She was started on nitroglycerin. Her chest pain has improved, but she has a severe headache. PAST SURGICAL HISTORY: Status post . PAST MEDICAL HISTORY: 1. Chronic renal failure, stage 3. 2. Hypertension. SOCIAL HISTORY: The patient is not a smoker. She is not a drinker. FAMILY HISTORY: Noncontributory. ALLERGIES: NO KNOWN DRUG ALLERGIES. REVIEW OF SYSTEMS: The patient denies any fever or headaches. She is not having any neck pain. She denies any cough. She has some chest pain, but has improved. She does not complain of dyspnea. She has no nausea or vomiting. She has no leg edema. PHYSICAL EXAMINATION: VITAL SIGNS: Blood pressure is now 176/90, on nitroglycerin at 40, her pulse is 72 and respiratory rate is 16. HEENT: Shows no facial swelling or erythema. LYMPHATIC: Shows no submandibular, cervical, supraclavicular adenopathy. CARDIAC: Reveals regular rate and rhythm with normal S1, S2. LUNGS: Auscultation of lungs reveals crackles and rhonchi bilaterally. There is no wheezing. ABDOMEN: Soft and nontender. There is no rebound or guarding. EXTREMITIES: Shows no leg edema or calf tenderness. There is no cyanosis or clubbing. SKIN: Shows no rashes. NEUROLOGICAL: Shows no focal abnormalities. LABORATORY DATA: White blood cell count is 5.66, hemoglobin is 8.9, the platelet count is 404. BUN to creatinine ratio is 42 to 2.83. Potassium is 3.2. Other electrolytes within normal limits. BNP is 916. RADIOGRAPHIC DATA: Chest x-ray shows no acute abnormalities. IMPRESSION: 1. Accelerated hypertension with associated chest pain. 2. Chronic renal failure, stage 4. 3. Hypokalemia. 4. Anemia secondary to chronic blood loss. PLAN: 1. Begin nicardipine drip and wean down nitroglycerin as tolerated. 2. Cardiology consultation. 3. Nephrology consultation. 4. Replace potassium. 5. Anti-platelet agent. MD MINI Baron/MELANIE /[id number]
[2020-05-01 19:05] LABS: CREATINE KINASE MB 3.9 ng/mL (0-5.0)
[2020-05-01] MEDS: NIFEDIPINE CR 30 MG TAB PO SCH (20:31)
[2020-05-01] MEDS: CARVEDILOL 12.5 MG TAB PO SCH (20:31)
[2020-05-01] MEDS ORDERED: ZOLPIDEM TARTRATE 5 MG TAB PO PRN (21:00)
--- NOTE | 2020-05-01 22:35 | Consultation ---
DATE OF CONSULTATION: Cardiology Consultation HISTORY OF PRESENT ILLNESS: This is a 39-year-old woman with a history of hypertension, congestive heart failure, chronic kidney disease, who presented to the emergency department with progressively worsening chest pain, shortness of breath, "flutters" in her chest. Symptoms were moderate to severe in intensity, progressively worsening, her chest pain was described as sharp and occasional pressure, not relieved with nitroglycerin, occurred at rest, not with exertion, no other exacerbating or relieving factors. Of note, the patient states that she was seen at [facility] and was transferred to [facility] in recent past and was found to have an abnormal stress test. She did not undergo cardiac catheterization at that time due to abnormal renal function. Also of note, she states that she has run out of her nifedipine approximately 9 to 10 days ago. REVIEW OF SYSTEMS: A 12-point review of system was conducted, is negative except as above in the HPI. PAST MEDICAL HISTORY: As stated above in the HPI. PAST SURGICAL HISTORY: . PAST FAMILY HISTORY: Noncontributory to current illness. SOCIAL HISTORY: No illicit drug, alcohol, or tobacco use. ALLERGIES: NO KNOWN DRUG ALLERGIES. MEDICATIONS: See medication reconciliation form. PHYSICAL EXAMINATION: VITAL SIGNS: The patient is afebrile, heart rate 78, respirations 15, blood pressure is 144/73, oxygen saturation 100% on room air. GENERAL: Well appearing, well built, no apparent distress. Alert and oriented x3. HEAD: Normocephalic and atraumatic. EYES: The extraocular muscles are intact. Conjunctivae clear. NECK: No JVD. No bruits. CARDIOVASCULAR: Regular rate and rhythm. Mild systolic murmur at the left sternal border. LUNGS: Diminished breath sounds at bases. ABDOMEN: Soft, nontender, nondistended. EXTREMITIES: No clubbing, cyanosis, or edema. VASCULAR: 2+ pulses. SKIN: Warm, dry and intact. NEUROLOGIC: No focal deficits noted. Cranial nerves grossly intact. PSYCHIATRIC: Normal mood and affect. LABORATORY DATA: All laboratory data reviewed. Creatinine is 2.83, potassium 3.2. Creatine kinase is 783. Troponin negative x2. BNP is 916. Albumin is 2.6. Chest x-ray shows no acute cardiopulmonary abnormality. 12-lead electrocardiogram showed normal sinus rhythm with PACs with premature atrial complexes and premature ventricular complexes. TELEMETRY: Monitoring has shown normal sinus rhythm with multiple and consecutive PACs and premature ventricular complexes with mild short runs of nonsustained ventricular tachycardia. IMPRESSION: 1. Precordial pain. 2. Shortness of breath. 3. Acute on chronic diastolic heart failure. 4. Acute on chronic kidney disease. 5. Hypokalemia. 6. Premature atrial complexes. 7. Premature ventricular complexes. RECOMMENDATIONS: In regard to her hypertension, we will try to wean off Cardene. We will restart nifedipine and start carvedilol. Correct electrolyte levels to reduce cardiac ectopy. Resume her and her atorvastatin and start on aspirin. There is no evidence of acute coronary syndrome at this point in time. Her echocardiogram showed preserved left ventricular systolic function with moderate left ventricular hypertrophy and no significant valvular abnormalities. The patient likely would benefit from cardiac catheterization given the past history of abnormal stress test. However, this can be deferred at this time until evaluated by Nephrology. DO EVITA Alejandre/MODL /[id number]
[2020-05-02] VITALS (8 sets, daily range): BP systolic 132–143; BP diastolic 69–75
[2020-05-02 04:43] LABS: BASOPHILS % 0.7 % (0.0-1.0); EOSINOPHILS # (AUTO) 0.2 (0.0-0.4); EOSINOPHILS % 2.8 % (0.0-6.0); HEMATOCRIT 26.5 % (34.2-44.1); LYMPHOCYTES # (AUTO) 1.9 (1.0-3.2); MEAN CORPUSCULAR HGB CONC 30.2 g/dL (31-35); MEAN CORPUSCULAR VOLUME 76.1 fL (81-99); MONOCYTES # (AUTO) 0.4 (0.2-0.8); MONOCYTES % 6.7 % (4.4-11.3); NEUTROPHILS # (AUTO) 3.3 (2.1-6.9); NEUTROPHILS % 56.8 % (38.7-80.0); PLATELET COUNT 390 x10e3/uL (140-360); RED BLOOD COUNT 3.48 x10e6/uL (3.6-5.1); RED CELL DISTRIBUTION WIDTH 19.9 % (11.7-14.4)
[2020-05-02 05:25] LABS: FERRITIN 9.65 ng/mL (4.63-204.00)
[2020-05-02 05:27] LABS: CREATINE KINASE MB 3.1 ng/mL (0-5.0)
[2020-05-02 05:47] LABS: ALBUMIN 2.2 g/dL (3.5-5.0); ALBUMIN/GLOBULIN RATIO 0.6 (0.8-2.0); ANION GAP 12.3 mmol/L (8-16); CALCIUM 7.9 mg/dL (8.4-10.2); CREATININE, SERUM 2.86 mg/dL (0.57-1.11); POTASSIUM 3.3 mmol/L (3.5-5.1)
[2020-05-02] MEDS ORDERED: FAMOTIDINE 20 MG TAB PO ONE (06:00)
[2020-05-02] MEDS: NIFEDIPINE CR 30 MG TAB PO SCH (09:02)
[2020-05-02] MEDS: CARVEDILOL 12.5 MG TAB PO SCH (09:02)
--- NOTE | 2020-05-02 09:03 | Progress Note ---
DATE: SUBJECTIVE: The patient is feeling better. She is not having headache. She is off nicardipine. She is off nitroglycerin. She is on Coreg and nifedipine. PHYSICAL EXAMINATION: VITAL SIGNS: Blood pressure is 143/70, saturation is 98%, and the pulse is 74. HEENT: Shows no facial swelling or erythema. LYMPHATIC: Shows no submandibular, cervical, or supraclavicular adenopathy. CARDIAC: Reveals regular rate and rhythm, with normal S1, S2. LUNGS: Auscultation of lungs shows decreased breath sounds at the bases. There is no wheezing. ABDOMEN: Soft, nontender. There is no rebound or guarding. EXTREMITIES: Shows no leg edema or calf tenderness. There is no cyanosis or clubbing. SKIN: Shows no rashes. NEUROLOGIC: Shows no focal abnormalities. LABORATORY DATA: White blood cell count is 5.78, hemoglobin is 8, and platelet count is 390. The BUN to creatinine ratio is 42 to 2.86 and the potassium is 3.3. Other electrolytes within normal limits. Albumin is 2.2. IMPRESSION: 1. Accelerated hypertension with associated chest pain. 2. Chronic renal failure, stage 4. 3. Hypokalemia. 4. Anemia secondary to chronic blood loss. PLAN: 1. Continue current cardiac antihypertensive regimen. 2. Continue to replace potassium as needed. 3. Await Nephrology consultation. 4. Transfer to Med-Surg. Jarek Francois MD [facility]/MODL /[id number]
--- NOTE | 2020-05-02 09:45 | NUR ---
GAVE PACKET OF INFORMATION WITH [facility] [employer] FOR ASSISTANCE WITH LOW TO NO INCOME TO PATIENT. RESOURCES THAT PATIENT MAY BE ABLE TO FOLLOW UP UPON DISCHARGE. PT EDUCATED ON EACH RESOURCE AND UNDERSTANDING HOW TO FOLLOW UP TO SEE IF QUALIFIED FOR EACH RESOURCE.
[2020-05-02] MEDS ORDERED: POTASSIUM CHLORIDE 20 MEQ TAB CR PO ONE (10:16)
[2020-05-02] MEDS ORDERED: NIFEDIPINE ER30 M1 PO (10:35)
[2020-05-02] MEDS ORDERED: COREG12.5 MG PO (10:35)
--- NOTE | 2020-05-02 11:30 | NUR ---
Per Heather Chang, after she spoke with Cardiology, okay for patient to discharge home. Patient discharge summary completed and Mrs. Barakat states understanding of need for medication compliance and follow up with PCP and Cardiology. Patient awaiting mother to drive her home.
== END 2020-05-02 12:46 | disposition home or self-care (01) | DRG 304 ==
LOC: ER 09:51 → ERHOLD 10:16 → ICU 11:51
PROVIDERS: ADMIT Internal Medicine; ATTEND Internal Medicine
DX: I16.1 Hypertensive emergency (principal); I50.33 Acute on chronic diastolic (congestive) heart failure; N17.9 Acute kidney failure, unspecified; N18.4 Chronic kidney disease, stage 4 (severe); I11.0 Hypertensive heart disease with heart failure; I13.0 Hypertensive heart and chronic kidney disease with heart failure and stage 1 through stage 4 chronic kidney disease, or unspecified chronic kidney disease; E87.6 Hypokalemia; R06.02 Shortness of breath; E66.9 Obesity, unspecified; Z68.32 Body mass index [BMI] 32.0-32.9, adult; D50.0 Iron deficiency anemia secondary to blood loss (chronic); I49.1 Atrial premature depolarization; I49.3 Ventricular premature depolarization; Z20.828 Contact with and (suspected) exposure to other viral communicable diseases
CPT/HCPCS: 36415; 71045; 80053; 82550; 82553; 82728; 83540; 83880; 84466; 84484; 85025; 85379; 93005; 93306; 99284; J0360; J2270; J2405; U0002